=== PATIENT | female | born 1975 | race Caucasian/White ===

== ENCOUNTER 2017-12-26 12:41 | Emergency (ER) | payer SELFPAY ==
[~2017-12-26] VITALS: Ht 165.1 cm; Wt 212.3 kg
[~2017-12-26 12:41] MED LIST: CYCL10 PO; DOXY100 PO; FLUC100 PO; FURO20; HYDACE5 PO; HYDCHL12.5 PO; HYDCHL25 PO; KETO10 PO; LEVFLO500 PO; LORA10ER PO; Lisinopril2.5 MG; META800 PO; NAPR550 PO; NYST100TO TOP; Norco 5-325 Ta1 EACH PO; Norco 7.5-3251 EACH PO; OMEP20ER PO; OXYACE5T PO; POTCHL10ER; PROM25 PO; Percocet 5-3251 EACH PO; RXHYDACE PO; RXMETA400 PO; SOMA350 MG PO
[2017-12-26] MEDS ORDERED: HYDCHL12.5 (12:59)
[2017-12-26] MEDS ORDERED: IBUP600 PO (13:32)
[2017-12-26] MEDS ORDERED: TRAM50 PO (13:32)
== END 2017-12-26 13:38 | disposition home or self-care (01) ==
LOC: ER 12:41
DX: S90.32XA Contusion of left foot, initial encounter (principal); W22.8XXA Striking against or struck by other objects, initial encounter; Z79.899 Other long term (current) drug therapy; G43.909 Migraine, unspecified, not intractable, without status migrainosus; E66.9 Obesity, unspecified; Z87.891 Personal history of nicotine dependence; Z68.45 Body mass index [BMI] 70 or greater, adult; Z85.41 Personal history of malignant neoplasm of cervix uteri
CPT/HCPCS: 73630; 99283

== ENCOUNTER 2018-03-08 20:04 | Inpatient (IN) | payer SELFPAY ==
[~2018-03-08] VITALS: Ht 165.1 cm; Wt 216.1 kg
[~2018-03-08 20:04] MED LIST changes: +HYDCHL12.5; +IBUP600 PO; +TRAM50 PO
[2018-03-08 20:59] LABS: BASOPHILS ABSOLUTE AUTO 0.02 K/mm3 (0.00-0.23); BASOPHILS PERCENT AUTO 0 % (0-2); EOSINOPHILS ABSOLUTE AUTO 0.02 K/mm3 (0.00-0.68); EOSINOPHILS PERCENT AUTO 0 % (0-6); Hematocrit 39.7 % (33.0-51.0); Hemoglobin 13.6 g/dL (11.5-16.0); IMMATURE GRAN ABSOLUTE AUTO 0.03 K/mm3 (0.00-0.10); IMMATURE GRAN PERCENT AUTO 0 % (0-1); LYMPHOCYTES ABSOLUTE AUTO 0.41 K/mm3 (0.84-5.20); LYMPHOCYTES PERCENT AUTO 4 % (21-46); MONOCYTES PERCENT AUTO 5 % (4-13); Mean Corpuscular HGB 31.7 pg (26.0-34.0); Mean Corpuscular HGB Conc 34.3 g/dL (31.5-36.5); Mean Corpuscular Volume 93 fL (80-100); Mean Platelet Volume 10.2 fL (9.1-12.4); NEUTROPHILS ABSOLUTE AUTO 9.31 K/mm3 (1.96-9.15); NEUTROPHILS PERCENT AUTO 90 % (41-73); Platelet Count 144 K/mm3 (150-400); RDW Standard Deviation 40.9 fL (35.1-46.3); Red Blood Cell Count 4.29 M/mm3 (3.80-5.20); White Blood Cell Count 10.29 K/mm3 (4.00-11.30)
[2018-03-08 21:16] LABS: Alanine Aminotransfer (ALT/SGP 59 U/L (12-78); Albumin, Blood 3.3 g/dL (3.4-5.0); Albumin/Globulin Ratio 0.7 (0.8-1.8); Alk Phos 108 U/L (50-136); Anion Gap 8 mmol/L (6-16); Aspartate Aminotrans (AST/SGOT 63 U/L (12-37); Bilirubin, Total 0.5 mg/dL (0.1-1.0); Blood Urea Nitrogen 16 mg/dL (8-24); Bun/Creatinine Ratio 15.2 (12.0-20.0); CO2, Blood 27 mmol/L (21-32); Calcium, Blood 8.9 mg/dL (8.5-10.1); Chloride, Blood 99 mmol/L (98-108); Creatinine, Blood 1.05 mg/dL (0.40-1.00); Globulin, Blood 4.7 g/dL (2.2-4.0); Glomerular Filtration Rate >60 (60-); Glucose, Blood 118 mg/dL (70-99); Potassium, Blood 3.7 mmol/L (3.5-5.5); Sodium, Blood 134 mmol/L (136-145)
[2018-03-08] MEDS ORDERED: Adipex-P37.5 MG PO (23:25)
[2018-03-08] MEDS ORDERED: FURO20 PO (23:26)
[2018-03-08] MEDS ORDERED: POTCHL10ER (23:26)
[2018-03-08] MEDS ORDERED: ZESTORETIC 20-1 EAC1 PO (23:26)
[2018-03-08 23:42] LABS: Source, Urine Catheter
[2018-03-08 23:45] LABS: Bilirubin, Urine Neg (Neg); Blood, Urine 1+ (Neg); Glucose Qualitative, Urine Neg (Neg); Ketones, Urine Neg (Neg); Leukocyte Esterase, Urine Neg (Neg); Nitrite, Urine Neg (Neg); Protein, Urine Neg (Neg); Specific Gravity, Urine 1.025 (1.003-1.022); Urobilinogen, Urine NORM (Normal)
[2018-03-08 23:57] LABS: Appearance, Urine Hazy (Clear); Color, Urine Yellow (P-Yellow)
[2018-03-08 23:58] LABS: Amorphous Light (0-Heavy); Bacteria Mod /hpf; Squamous Epithelial Cells Few /hpf (Few); White Blood Cells, Urine 0-2 /hpf (0-5)
[2018-03-09 10:04] LABS: BASOPHILS ABSOLUTE AUTO 0.02 K/mm3 (0.00-0.23); BASOPHILS PERCENT AUTO 0 % (0-2); EOSINOPHILS PERCENT AUTO 0 % (0-6); Hematocrit 36.5 % (33.0-51.0); Hemoglobin 12.2 g/dL (11.5-16.0); IMMATURE GRAN ABSOLUTE AUTO 0.03 K/mm3 (0.00-0.10); IMMATURE GRAN PERCENT AUTO 0 % (0-1); LYMPHOCYTES ABSOLUTE AUTO 0.57 K/mm3 (0.84-5.20); LYMPHOCYTES PERCENT AUTO 6 % (21-46); MONOCYTES ABSOLUTE AUTO 0.26 K/mm3 (0.16-1.47); MONOCYTES PERCENT AUTO 3 % (4-13); Mean Corpuscular HGB 31.6 pg (26.0-34.0); Mean Corpuscular HGB Conc 33.4 g/dL (31.5-36.5); Mean Corpuscular Volume 95 fL (80-100); Mean Platelet Volume 10.2 fL (9.1-12.4); NEUTROPHILS ABSOLUTE AUTO 8.17 K/mm3 (1.96-9.15); NEUTROPHILS PERCENT AUTO 90 % (41-73); Platelet Count 111 K/mm3 (150-400); RDW Coefficient Variation 12.3 % (11.7-14.2); RDW Standard Deviation 43.1 fL (35.1-46.3); Red Blood Cell Count 3.86 M/mm3 (3.80-5.20); White Blood Cell Count 9.05 K/mm3 (4.00-11.30)
[2018-03-09 10:18] LABS: Bun/Creatinine Ratio 12.2 (12.0-20.0); Calcium, Blood 7.9 mg/dL (8.5-10.1); Creatinine, Blood 1.15 mg/dL (0.40-1.00); Potassium, Blood 3.2 mmol/L (3.5-5.5)
[2018-03-10 04:40] LABS: BASOPHILS ABSOLUTE AUTO 0.02 K/mm3 (0.00-0.23); BASOPHILS PERCENT AUTO 0 % (0-2); EOSINOPHILS ABSOLUTE AUTO 0.08 K/mm3 (0.00-0.68); EOSINOPHILS PERCENT AUTO 1 % (0-6); Hematocrit 33.9 % (33.0-51.0); Hemoglobin 11.4 g/dL (11.5-16.0); IMMATURE GRAN ABSOLUTE AUTO 0.01 K/mm3 (0.00-0.10); IMMATURE GRAN PERCENT AUTO 0 % (0-1); LYMPHOCYTES ABSOLUTE AUTO 0.84 K/mm3 (0.84-5.20); LYMPHOCYTES PERCENT AUTO 15 % (21-46); MONOCYTES ABSOLUTE AUTO 0.33 K/mm3 (0.16-1.47); MONOCYTES PERCENT AUTO 6 % (4-13); Mean Corpuscular HGB 31.1 pg (26.0-34.0); Mean Corpuscular HGB Conc 33.6 g/dL (31.5-36.5); Mean Corpuscular Volume 93 fL (80-100); Mean Platelet Volume 10.7 fL (9.1-12.4); NEUTROPHILS ABSOLUTE AUTO 4.35 K/mm3 (1.96-9.15); NEUTROPHILS PERCENT AUTO 77 % (41-73); Platelet Count 125 K/mm3 (150-400); RDW Coefficient Variation 12.3 % (11.7-14.2); Red Blood Cell Count 3.66 M/mm3 (3.80-5.20); White Blood Cell Count 5.63 K/mm3 (4.00-11.30)
[2018-03-10 04:59] LABS: Anion Gap 9 mmol/L (6-16); Blood Urea Nitrogen 13 mg/dL (8-24); Bun/Creatinine Ratio 12.1 (12.0-20.0); CO2, Blood 25 mmol/L (21-32); Calcium, Blood 7.7 mg/dL (8.5-10.1); Chloride, Blood 104 mmol/L (98-108); Creatinine, Blood 1.07 mg/dL (0.40-1.00); Glomerular Filtration Rate >60 (60-); Glucose, Blood 115 mg/dL (70-99); Potassium, Blood 3.3 mmol/L (3.5-5.5); Sodium, Blood 138 mmol/L (136-145)
[2018-03-10 16:00] LABS: Vancomycin, Trough 31.4 ug/mL (5.0-10.0)
[2018-03-11 05:54] LABS: Vancomycin, Random 16.5 ug/mL
[2018-03-12 09:12] LABS: Creatinine, Blood 0.98 mg/dL (0.40-1.00)
[2018-03-13] MEDS ORDERED: SKIN TREATMENT225 GM TOP (11:02)
[2018-03-13] MEDS ORDERED: LEVO750 PO (11:03)
== END 2018-03-13 11:57 | disposition home or self-care (01) | DRG 872 ==
LOC: ER 20:04 → MEDS 22:30 → PCU 22:30 → MEDS 03-09 00:16 → PCU 03-09 00:34 → MEDS 03-09 19:20 → ENPENDDIS 03-13 10:21 → MEDS 03-13 11:57
PROVIDERS: Emergency Medicine; Hospitalist; Internal Medicine; Nurse Practitioner Acute Care; Pharmacist Pharmacotherapy
DX: A41.9 Sepsis, unspecified organism (principal); L03.115 Cellulitis of right lower limb; Z68.45 Body mass index [BMI] 70 or greater, adult; R65.20 Severe sepsis without septic shock; I89.0 Lymphedema, not elsewhere classified; I10 Essential (primary) hypertension; R40.2412 Glasgow coma scale score 13-15, at arrival to emergency department; E66.01 Morbid (severe) obesity due to excess calories; Z85.41 Personal history of malignant neoplasm of cervix uteri; R19.7 Diarrhea, unspecified; I95.9 Hypotension, unspecified; E86.1 Hypovolemia; L30.9 Dermatitis, unspecified
CPT/HCPCS: 36415; 71046; 76882; 80048; 80053; 80202; 81001; 82565; 83605; 85025; 85027; 85651; 86140; 87040; 87086; 93005; 93010; 94762; 96365; 96367; 96375; 97116; 97162; 97530; 99285; G8978; G8979; J0690; J1650; J2543; J3010; J3370; J7030; J7050

== ENCOUNTER → 2018-03-21 | Outpatient (CLI) | payer SELFPAY ==
[~2018-03-21] MED LIST changes: +Adipex-P37.5 MG PO; +FURO20 PO; +LEVO750 PO; +SKIN TREATMENT225 GM TOP; +ZESTORETIC 20-1 EAC1 PO
[2018-03-21 12:51] LABS: BASOPHILS ABSOLUTE AUTO 0.04 K/mm3 (0.00-0.23); BASOPHILS PERCENT AUTO 1 % (0-2); EOSINOPHILS ABSOLUTE AUTO 0.15 K/mm3 (0.00-0.68); EOSINOPHILS PERCENT AUTO 3 % (0-6); Hematocrit 40.6 % (33.0-51.0); Hemoglobin 13.3 g/dL (11.5-16.0); IMMATURE GRAN ABSOLUTE AUTO 0.02 K/mm3 (0.00-0.10); IMMATURE GRAN PERCENT AUTO 0 % (0-1); LYMPHOCYTES ABSOLUTE AUTO 1.48 K/mm3 (0.84-5.20); LYMPHOCYTES PERCENT AUTO 28 % (21-46); MONOCYTES ABSOLUTE AUTO 0.53 K/mm3 (0.16-1.47); MONOCYTES PERCENT AUTO 10 % (4-13); Mean Corpuscular HGB 31.4 pg (26.0-34.0); Mean Corpuscular HGB Conc 32.8 g/dL (31.5-36.5); Mean Corpuscular Volume 96 fL (80-100); Mean Platelet Volume 9.8 fL (9.1-12.4); NEUTROPHILS ABSOLUTE AUTO 3.17 K/mm3 (1.96-9.15); NEUTROPHILS PERCENT AUTO 59 % (41-73); Platelet Count 268 K/mm3 (150-400); RDW Coefficient Variation 12.7 % (11.7-14.2); RDW Standard Deviation 44.8 fL (35.1-46.3); Red Blood Cell Count 4.24 M/mm3 (3.80-5.20); White Blood Cell Count 5.39 K/mm3 (4.00-11.30)
[2018-03-21 12:57] LABS: Bun/Creatinine Ratio 13.6 (12.0-20.0); Calcium, Blood 9.6 mg/dL (8.5-10.1); Creatinine, Blood 1.25 mg/dL (0.40-1.00); Potassium, Blood 4.1 mmol/L (3.5-5.5)
== END ==
LOC: LAB EV 12:47 → LAB SHORT 12:47
PROVIDERS: Physician Assistant Surgical
DX: R53.83 Other fatigue (principal)
CPT/HCPCS: 80048; 85025

== ENCOUNTER 2018-04-02 16:33 | Observation (INO) | payer SELFPAY ==
[~2018-04-02] VITALS: Ht 167.6 cm; Wt 209.4 kg
[2018-04-02 18:51] LABS: BASOPHILS ABSOLUTE AUTO 0.03 K/mm3 (0.00-0.23); BASOPHILS PERCENT AUTO 0 % (0-2); EOSINOPHILS ABSOLUTE AUTO 0.07 K/mm3 (0.00-0.68); EOSINOPHILS PERCENT AUTO 1 % (0-6); Hemoglobin 14.2 g/dL (11.5-16.0); IMMATURE GRAN ABSOLUTE AUTO 0.02 K/mm3 (0.00-0.10); IMMATURE GRAN PERCENT AUTO 0 % (0-1); LYMPHOCYTES ABSOLUTE AUTO 2.05 K/mm3 (0.84-5.20); LYMPHOCYTES PERCENT AUTO 30 % (21-46); MONOCYTES ABSOLUTE AUTO 0.68 K/mm3 (0.16-1.47); MONOCYTES PERCENT AUTO 10 % (4-13); Mean Corpuscular HGB 31.2 pg (26.0-34.0); Mean Corpuscular Volume 95 fL (80-100); Mean Platelet Volume 10.3 fL (9.1-12.4); NEUTROPHILS ABSOLUTE AUTO 4.11 K/mm3 (1.96-9.15); NEUTROPHILS PERCENT AUTO 59 % (41-73); Platelet Count 212 K/mm3 (150-400); RDW Coefficient Variation 12.7 % (11.7-14.2); RDW Standard Deviation 44.2 fL (35.1-46.3); Red Blood Cell Count 4.55 M/mm3 (3.80-5.20); White Blood Cell Count 6.96 K/mm3 (4.00-11.30)
[2018-04-02 18:53] LABS: Source, Urine Catheter
[2018-04-02 18:57] LABS: Bilirubin, Urine Neg (Neg); Blood, Urine 1+ (Neg); Glucose Qualitative, Urine Neg (Neg); Ketones, Urine Neg (Neg); Leukocyte Esterase, Urine 3+ (Neg); Nitrite, Urine Neg (Neg); Protein, Urine Neg (Neg); Urobilinogen, Urine NORM (Normal)
[2018-04-02 19:23] LABS: Albumin, Blood 3.6 g/dL (3.4-5.0); Albumin/Globulin Ratio 0.8 (0.8-1.8); Bilirubin, Total 0.7 mg/dL (0.1-1.0); Bun/Creatinine Ratio 15.7 (12.0-20.0); Calcium, Blood 9.2 mg/dL (8.5-10.1); Creatinine, Blood 1.15 mg/dL (0.40-1.00); Globulin, Blood 4.4 g/dL (2.2-4.0); Potassium, Blood 3.6 mmol/L (3.5-5.5)
[2018-04-02 19:23] LABS: Appearance, Urine Hazy (Clear); Color, Urine Yellow (P-Yellow)
[2018-04-02 19:24] LABS: Amorphous Light (0-Heavy); Bacteria Mod /hpf; Mucus Light (0-Heavy); Red Blood Cells, Urine 0-2 /hpf (0-2); Squamous Epithelial Cells Few /hpf (Few); White Blood Cells, Urine 25-50 /hpf (0-5); Yeast/Fungi Urine Few /hpf
[2018-04-03 05:25] LABS: Hematocrit 39.7 % (33.0-51.0); Hemoglobin 13.2 g/dL (11.5-16.0); Mean Corpuscular HGB 30.9 pg (26.0-34.0); Mean Corpuscular HGB Conc 33.2 g/dL (31.5-36.5); Mean Corpuscular Volume 93 fL (80-100); Mean Platelet Volume 10.6 fL (9.1-12.4); Platelet Count 170 K/mm3 (150-400); RDW Standard Deviation 43.9 fL (35.1-46.3); Red Blood Cell Count 4.27 M/mm3 (3.80-5.20); White Blood Cell Count 4.98 K/mm3 (4.00-11.30)
[2018-04-03 05:53] LABS: Anion Gap 8 mmol/L (6-16); Blood Urea Nitrogen 19 mg/dL (8-24); Bun/Creatinine Ratio 17.8 (12.0-20.0); CO2, Blood 29 mmol/L (21-32); Calcium, Blood 8.9 mg/dL (8.5-10.1); Chloride, Blood 100 mmol/L (98-108); Creatinine, Blood 1.07 mg/dL (0.40-1.00); Glomerular Filtration Rate >60 (60-); Glucose, Blood 97 mg/dL (70-99); Potassium, Blood 3.5 mmol/L (3.5-5.5); Sodium, Blood 137 mmol/L (136-145)
[2018-04-03] MEDS ORDERED: Ceftriaxone2 G1 IV (11:09)
[2018-04-03] MEDS ORDERED: ACET325 PO (11:09)
[2018-04-03] MEDS ORDERED: Acidophilus La100 GM PO (11:10)
== END 2018-04-03 15:48 | disposition home or self-care (01) ==
LOC: ER 16:33 → MEDS 16:34 → ER 16:34 → MEDS 16:35 → ENPENDDIS 04-03 11:30 → MEDS 04-03 15:48
PROVIDERS: Internal Medicine; Physician Assistant
DX: L03.115 Cellulitis of right lower limb (principal); E66.01 Morbid (severe) obesity due to excess calories; I89.0 Lymphedema, not elsewhere classified; I12.9 Hypertensive chronic kidney disease with stage 1 through stage 4 chronic kidney disease, or unspecified chronic kidney disease; N18.9 Chronic kidney disease, unspecified; N17.9 Acute kidney failure, unspecified; Z79.899 Other long term (current) drug therapy; Z87.891 Personal history of nicotine dependence
CPT/HCPCS: 36415; 80048; 80053; 81001; 83605; 85025; 85027; 87040; 87086; 93005; 93010; 96374; 96376; 99285-25; G0378; J0696; J1650; J2765; J7120

== ENCOUNTER 2018-04-09 00:41 | Day surgery (SDC) | payer SELFPAY ==
[~2018-04-09 00:41] MED LIST changes: +ACET325 PO; +Acidophilus La100 GM PO; +Ceftriaxone2 G1 IV
== END 2018-04-09 08:06 | disposition home or self-care (01) ==
LOC: ATC 00:41
DX: L03.115 Cellulitis of right lower limb (principal); E66.01 Morbid (severe) obesity due to excess calories; I10 Essential (primary) hypertension
CPT/HCPCS: 96374; J0696

== ENCOUNTER 2020-02-24 00:17 | Day surgery (SDC) | payer OTHER | END 2020-02-24 23:00 | disposition home or self-care (01) | LOC: WOUND 00:17 | DX: I89.0 Lymphedema, not elsewhere classified (principal); E66.01 Morbid (severe) obesity due to excess calories; I10 Essential (primary) hypertension; G47.33 Obstructive sleep apnea (adult) (pediatric); Z87.891 Personal history of nicotine dependence; Z91.018 Allergy to other foods; Z68.45 Body mass index [BMI] 70 or greater, adult | CPT/HCPCS: G0463 ==

== ENCOUNTER 2020-05-04 14:17 | Inpatient (IN) | payer OTHER ==
[~2020-05-04] VITALS: Ht 162.6 cm; Wt 249.9 kg
[2020-05-04 15:23] LABS: BASOPHILS ABSOLUTE AUTO 0.02 K/mm3 (0.00-0.23); BASOPHILS PERCENT AUTO 0 % (0-2); EOSINOPHILS PERCENT AUTO 0 % (0-6); Hematocrit 37.3 % (33.0-51.0); IMMATURE GRAN ABSOLUTE AUTO 0.06 K/mm3 (0.00-0.10); IMMATURE GRAN PERCENT AUTO 0 % (0-1); LYMPHOCYTES ABSOLUTE AUTO 0.85 K/mm3 (0.84-5.20); LYMPHOCYTES PERCENT AUTO 6 % (21-46); MONOCYTES ABSOLUTE AUTO 0.39 K/mm3 (0.16-1.47); MONOCYTES PERCENT AUTO 3 % (4-13); Mean Corpuscular HGB 31.3 pg (26.0-34.0); Mean Corpuscular HGB Conc 32.2 g/dL (31.5-36.5); Mean Corpuscular Volume 97 fL (80-100); Mean Platelet Volume 10.4 fL (9.1-12.4); NEUTROPHILS ABSOLUTE AUTO 12.61 K/mm3 (1.96-9.15); NEUTROPHILS PERCENT AUTO 91 % (41-73); Platelet Count 147 K/mm3 (150-400); RDW Coefficient Variation 13.2 % (11.7-14.2); RDW Standard Deviation 46.7 fL (35.1-46.3); Red Blood Cell Count 3.84 M/mm3 (3.80-5.20); White Blood Cell Count 13.93 K/mm3 (4.00-11.30)
[2020-05-04 15:41] LABS: Source, Urine Catheter
[2020-05-04 15:45] LABS: Appearance, Urine Hazy (Clear); Blood, Urine 2+ (Neg); Color, Urine Amber (P-Yellow); Glucose Qualitative, Urine Neg (Neg); Ketones, Urine Neg (Neg); Leukocyte Esterase, Urine 1+ (Neg); Nitrite, Urine Neg (Neg); Protein, Urine 2+ (Neg); Specific Gravity, Urine 1.015 (1.003-1.022); Urobilinogen, Urine 1+ (Normal)
[2020-05-04 15:47] LABS: Alanine Aminotransfer (ALT/SGP 29 U/L (12-78); Albumin, Blood 2.7 g/dL (3.4-5.0); Albumin/Globulin Ratio 0.7 (0.8-1.8); Alk Phos 62 U/L (50-136); Anion Gap 5 mmol/L (6-16); Aspartate Aminotrans (AST/SGOT 19 U/L (12-37); Bilirubin, Total 1.1 mg/dL (0.1-1.0); Blood Urea Nitrogen 15 mg/dL (8-24); Bun/Creatinine Ratio 16.4 (12.0-20.0); CO2, Blood 25 mmol/L (21-32); Calcium, Blood 8.2 mg/dL (8.5-10.1); Chloride, Blood 105 mmol/L (98-108); Creatinine, Blood 0.91 mg/dL (0.40-1.00); Globulin, Blood 4.1 g/dL (2.2-4.0); Glomerular Filtration Rate >60 (60-); Glucose, Blood 98 mg/dL (70-99); Potassium, Blood 3.9 mmol/L (3.5-5.5); Sodium, Blood 135 mmol/L (136-145); Total Protein, Blood 6.8 g/dL (6.4-8.2)
[2020-05-04 15:52] LABS: Bilirubin, Urine 1+ (Neg)
[2020-05-04 15:55] LABS: Red Blood Cells, Urine 0-2 /hpf (0-2); Squamous Epithelial Cells Many /hpf (Few); White Blood Cells, Urine 0-2 /hpf (0-5)
[2020-05-04 15:56] LABS: Bacteria Few /hpf; Other Crystals Mod /hpf
--- NOTE | 2020-05-04 22:22 | NUR ---
ADMITTED 44 YR OLD FEMALE WITH MORBID OBESITY (249.93 KG) WITH CHIEF COMPLAINT OF BACK PAIN. ED RN REPORTED THIS HAD BEEN OVER THE PAST FEW DAYS PRIOR TO ADMISSION. PLACED ON BARIATRIC BED WITH CEILING LIFT. PRESENTS SELF ALERT BUT TIRED. NOBLE DRAINING KENDRA. NOTE RIGHT LEG WARM, TEMP SLIGHTLY ELEVATED, OTHERWISE VSS. ORIENTED TO USE OF CALL LIGHT. CALL LIGHT IN REACH. WILL MONITOR. RAILS UP X 3
[2020-05-05 01:26] LABS: Source, Urine Catheter
[2020-05-05 01:29] LABS: Appearance, Urine Clear (Clear); Bilirubin, Urine Neg (Neg); Blood, Urine 3+ (Neg); Color, Urine Yellow (P-Yellow); Glucose Qualitative, Urine Neg (Neg); Ketones, Urine 3+ (Neg); Leukocyte Esterase, Urine Neg (Neg); Nitrite, Urine Neg (Neg); Protein, Urine Neg (Neg); Urobilinogen, Urine NORM (Normal)
[2020-05-05 01:36] LABS: Red Blood Cells, Urine 0-2 /hpf (0-2); White Blood Cells, Urine 0-2 /hpf (0-5)
[2020-05-05 01:37] LABS: Bacteria Mod /hpf; Hyaline Casts 0-2 /lpf (0-2); Mucus Light (0-Heavy); Squamous Epithelial Cells Not Seen /hpf (Few)
--- NOTE | 2020-05-05 03:20 | NUR ---
NOTE RIGHT LEG MORE SWOLLEN THAN NOTED ON ADMISSION. TEMP 101.9, HR 111, R 16, O2 SATS 97%. VIEWS SCORE 5, CHARGE NURSE NOTIFIED, TYLENOL 650 MG PO ADMININSTERED. SCHEDULED VANCO STARTED IV. CALL PLACED TO MD TECHNOLOGY ASSISTANT, WAITING FOR CALL BACK. CALL LIGHT IN REACH.
--- NOTE | 2020-05-05 03:25 | NUR ---
RETURNED CALL. NOTIFIED OF TYLENOL GIVEN AND VANCO INFUSING, ACKNOWLEDGED PROCEDURES AND OF ENLARGED RIGHT LEG COMPARED TO THAT OF EARLIER. STATED TO CONTINUE TO MONITOR. WILL RECHECK VS IN 1 HR.
--- NOTE | 2020-05-05 04:01 | NUR ---
TEMP 99.4. TYLENOL EFFECTIVE IN DECREASING FEVER. IV ANTIBIOTIC CONTINUES TO INFUSE. WILL CONTINUE TO MONITOR AND ASSESS. CALL LIGHT IN REACH
[2020-05-05 05:26] LABS: BASOPHILS ABSOLUTE AUTO 0.02 K/mm3 (0.00-0.23); BASOPHILS PERCENT AUTO 0 % (0-2); EOSINOPHILS ABSOLUTE AUTO 0.01 K/mm3 (0.00-0.68); EOSINOPHILS PERCENT AUTO 0 % (0-6); Hematocrit 34.8 % (33.0-51.0); Hemoglobin 11.2 g/dL (11.5-16.0); IMMATURE GRAN ABSOLUTE AUTO 0.04 K/mm3 (0.00-0.10); IMMATURE GRAN PERCENT AUTO 0 % (0-1); LYMPHOCYTES ABSOLUTE AUTO 0.88 K/mm3 (0.84-5.20); LYMPHOCYTES PERCENT AUTO 9 % (21-46); MONOCYTES ABSOLUTE AUTO 0.43 K/mm3 (0.16-1.47); MONOCYTES PERCENT AUTO 4 % (4-13); Mean Corpuscular HGB 31.3 pg (26.0-34.0); Mean Corpuscular HGB Conc 32.2 g/dL (31.5-36.5); Mean Corpuscular Volume 97 fL (80-100); Mean Platelet Volume 10.5 fL (9.1-12.4); NEUTROPHILS ABSOLUTE AUTO 8.88 K/mm3 (1.96-9.15); NEUTROPHILS PERCENT AUTO 87 % (41-73); Platelet Count 121 K/mm3 (150-400); RDW Coefficient Variation 13.2 % (11.7-14.2); RDW Standard Deviation 47.1 fL (35.1-46.3); Red Blood Cell Count 3.58 M/mm3 (3.80-5.20); White Blood Cell Count 10.26 K/mm3 (4.00-11.30)
[2020-05-05 05:39] LABS: Anion Gap 7 mmol/L (6-16); Blood Urea Nitrogen 13 mg/dL (8-24); Bun/Creatinine Ratio 12.5 (12.0-20.0); CO2, Blood 25 mmol/L (21-32); Calcium, Blood 8.1 mg/dL (8.5-10.1); Chloride, Blood 106 mmol/L (98-108); Creatinine, Blood 1.04 mg/dL (0.40-1.00); Glomerular Filtration Rate >60 (60-); Glucose, Blood 97 mg/dL (70-99); Potassium, Blood 3.7 mmol/L (3.5-5.5); Sodium, Blood 138 mmol/L (136-145)
--- NOTE | 2020-05-05 17:38 | NUR ---
SHIFT SUMMARY PT AOX4 AND CALLS APPROPRIATELY. PT MEDICATED FOR PAIN X1 THIS SHIFT AND MEDICATED X1 FOR FEVER OF 101.0, TRENDING UP TOWARDS 102.9. PT TEMP IS 102.3 WHEN RECHECKED THIS PASCUAL. PT CURRENTLY HAS ICE PACK ON BACK OF NECK AND FAN GOING. PT WORKED WITH PT THIS AM USING LIFT. PT TRANSFERRED INTO NEW BARIATRIC BED OWNED BY HOSPITAL AND RECLINER BROUGHT INTO PT ROOM. PT C/O SLIGHT COUGH AND BURPING UP "FOAM." SILVERIO MIST SEEMS TO HELP WITH THE COUGHING/BURPING. PT IS IN BED IN LOW POSITION WITH CALL LIGHT IN REACH.
[2020-05-06 05:05] LABS: BASOPHILS ABSOLUTE AUTO 0.02 K/mm3 (0.00-0.23); BASOPHILS PERCENT AUTO 0 % (0-2); EOSINOPHILS ABSOLUTE AUTO 0.12 K/mm3 (0.00-0.68); EOSINOPHILS PERCENT AUTO 2 % (0-6); Hemoglobin 11.2 g/dL (11.5-16.0); IMMATURE GRAN ABSOLUTE AUTO 0.02 K/mm3 (0.00-0.10); IMMATURE GRAN PERCENT AUTO 0 % (0-1); LYMPHOCYTES ABSOLUTE AUTO 0.97 K/mm3 (0.84-5.20); LYMPHOCYTES PERCENT AUTO 13 % (21-46); MONOCYTES PERCENT AUTO 6 % (4-13); Mean Corpuscular HGB 31.4 pg (26.0-34.0); Mean Corpuscular Volume 98 fL (80-100); Mean Platelet Volume 10.3 fL (9.1-12.4); NEUTROPHILS ABSOLUTE AUTO 6.13 K/mm3 (1.96-9.15); NEUTROPHILS PERCENT AUTO 79 % (41-73); Platelet Count 123 K/mm3 (150-400); RDW Coefficient Variation 13.1 % (11.7-14.2); RDW Standard Deviation 47.2 fL (35.1-46.3); Red Blood Cell Count 3.57 M/mm3 (3.80-5.20); White Blood Cell Count 7.76 K/mm3 (4.00-11.30)
[2020-05-06 05:22] LABS: Anion Gap 5 mmol/L (6-16); Blood Urea Nitrogen 11 mg/dL (8-24); Bun/Creatinine Ratio 11.2 (12.0-20.0); CO2, Blood 27 mmol/L (21-32); Calcium, Blood 8.4 mg/dL (8.5-10.1); Chloride, Blood 106 mmol/L (98-108); Creatinine, Blood 0.98 mg/dL (0.40-1.00); Glomerular Filtration Rate >60 (60-); Glucose, Blood 111 mg/dL (70-99); Potassium, Blood 3.7 mmol/L (3.5-5.5); Sodium, Blood 138 mmol/L (136-145)
--- NOTE | 2020-05-06 06:51 | NUR ---
SHIFT SUMMARY PT IS A 44 Y/O FEMALE, ADMITTED FOR SEPSIS R/T RLE CELLULITIS. SHE IS A&O X 4, BEDREST. PT IS MORBIDLY OBESE, CURRENTLY A LIFT PT TO GET OUT OF BED. SHE WAS MEDICATED FOR RLE PAIN AND A MCKEON WITH PRN TYLENOL AND OXYCODONE. NO COMPLAINTS OF NAUSEA OR SOB. VITAL SIGNS STABLE. NO ACUTE CHANGES IN PT CONDITION NOTED DURING THE NIGHT. WILL CONTINUE TO MONITOR AND TREAT PER EMAR UNTIL HAND OFF TO DAY SHIFT RN.
--- NOTE | 2020-05-06 18:47 | NUR ---
SHIFT SUMMARY PT IS AOX4. PT HAS BEEN MEDICATED FOR PAIN X3 THIS SHIFT FOR HEAD AND LEG PAIN. PT C/O CHEST PAIN IN THE EPIGASTRIC REGION THAT DOES NOT RADIATE AND PHYSICIAN IS AWARE OF STATUS. PT HAS HAD POOR APPETITE THIS SHIFT. PT WORKED WITH PT TO STAND AND REPORTS SHE DID WELL STANDING. PT IS STILL A LIFT STATUS.RIGHT LEG CONTINUES TO BE WARM AND REDNESS HAS INCREASED THIS SHIFT. ABX ARE RUNNING ON PT ORDERED. NO FEVER THIS SHIFT. PT IS CURRENTLY IN THE BEDSIDE RECLINER WITH VISITOR BRUSHING HER HAIR. PT HAS CALL LIGHT IN REACH.
--- NOTE | 2020-05-07 01:55 | NUR ---
PT STATED THAT SHE WAS EXPERIENCING BAD DREAMS AND HALLUCINATIONS DUE TO AN UNSPECIFIED MEDICATION THAT SHE NO LONGER WISHES TO TAKE, NURSE NOTIFIED.
[2020-05-07 05:56] LABS: BASOPHILS ABSOLUTE AUTO 0.01 K/mm3 (0.00-0.23); BASOPHILS PERCENT AUTO 0 % (0-2); EOSINOPHILS ABSOLUTE AUTO 0.12 K/mm3 (0.00-0.68); EOSINOPHILS PERCENT AUTO 2 % (0-6); Hematocrit 36.4 % (33.0-51.0); Hemoglobin 11.7 g/dL (11.5-16.0); IMMATURE GRAN ABSOLUTE AUTO 0.02 K/mm3 (0.00-0.10); IMMATURE GRAN PERCENT AUTO 0 % (0-1); LYMPHOCYTES ABSOLUTE AUTO 0.76 K/mm3 (0.84-5.20); LYMPHOCYTES PERCENT AUTO 14 % (21-46); MONOCYTES ABSOLUTE AUTO 0.45 K/mm3 (0.16-1.47); MONOCYTES PERCENT AUTO 8 % (4-13); Mean Corpuscular HGB 31.4 pg (26.0-34.0); Mean Corpuscular HGB Conc 32.1 g/dL (31.5-36.5); Mean Corpuscular Volume 98 fL (80-100); Mean Platelet Volume 10.5 fL (9.1-12.4); NEUTROPHILS ABSOLUTE AUTO 4.11 K/mm3 (1.96-9.15); NEUTROPHILS PERCENT AUTO 75 % (41-73); Platelet Count 138 K/mm3 (150-400); RDW Coefficient Variation 12.8 % (11.7-14.2); RDW Standard Deviation 46.5 fL (35.1-46.3); Red Blood Cell Count 3.73 M/mm3 (3.80-5.20); White Blood Cell Count 5.47 K/mm3 (4.00-11.30)
--- NOTE | 2020-05-07 06:40 | NUR ---
SHIFT SUMMARY PT IS A 44 Y/O FEMALE, ADMITTED FOR RLE CELLULITIS AND SEPSIS. SHE IS A&O X 4, AND A LIFT PT. PT WAS MEDICATED FOR PAIN WITH PRN TYLENOL & TRAMADOL AT HS, AND OXYCODONE DURING THE NIGHT. SHE REPORT NEW ONSET "NIGHTMARES" AND EPISODES OF ANXIETY WAKING HER UP INTERMITTENTLY DURING THE NIGHT. PT DID REPORT MILD NAUSEA, BUT REFUSED ANY NAUSEA MEDS. NO C/O SOB. VITAL SIGNS STABLE. NO OTHER ACUTE CHANGES IN PT CONDITION NOTED. WILL CONTINUE TO MONITOR AND TREAT PER EMAR UNTIL HAND OFF TO DAY SHIFT RN.
[2020-05-07 12:55] LABS: Vancomycin, Trough 27.5 ug/mL (5.0-10.0)
[2020-05-07 16:36] LABS: Vancomycin, Random 20.9 ug/mL
--- NOTE | 2020-05-07 19:54 | NUR ---
SHIFT SUMMARY- NO ACUTE CHANGE TODAY. NO PAIN MEDICATION REQUESTED. BURNING IN THE MID STERNAL AREA BECAME INTENSE AND THE PT REQUESTED SOMETHING TO HELP WITH IT. CALLED AND RECIEVED AN ORDER FOR GI COCKTAIL, WICH RESOLVED THE PAIN ENTIRELY. PT WAS ABLE TO EAT PART OF A SANDWITCH. PT HAD A FULL BED BATH AND WORKED WITH THERAPY TODAY, SHE IS HOPEFUL SHE WILL GET TO GO HOME TOMORROW. BEDSIDE REPORT COMPLETED WITH NIGHT TIRSO TELLO. PT IN BED CALL LIGHT IN REACH NO S&S OF DISTRESS NOTED AT THE TIME OF SHIFT CHANGE.
--- NOTE | 2020-05-08 04:15 | NUR ---
SHIFT SUMMARY ADMITTED FOR SEPSIS. SHE HAS RT LEG CELLULITIS. FULL CODE. SHE IS MORBIDLY OBESE. SHE HAS LYMPHADEMA OF BLE. CURRENTLY SHE IS A LIFT PT BUT PHYSICAL THERAPY HAS BEGUN WORKING WITH HER. A NOBLE IS IN PLACE AND PATENT. SHE DID RUN A LOW GRADE FEVER THIS SHIFT OF 101, TYLENOL WAS GIVEN TO GOOD EFFECT. IV ANTIBIOTICS ARE SCHEDULED. SHE STATES THAT WAS PREVIOUSLY SET UP FOR HER AT HOME, BUT THEY HAVE NOT COME TO THE HOUSE YET. SHE DOES LIVE AT HOME WITH HER .
[2020-05-08 08:53] LABS: Creatinine, Blood 0.81 mg/dL (0.40-1.00); Vancomycin, Trough 18.4 ug/mL (5.0-10.0)
--- NOTE | 2020-05-08 14:47 | NUR ---
PT DECLINED METAMUCIL STATED IF SHE CAN SIT ON THE COMODE SHE THINKS SHE CAN GO. PT CURRENTLY WORKING WITH PHYSICAL THERAPY, BUT UNABLE TO TAKE STEPS. T WILLING TO TRY A BARIATRIC BED ROY WHEN SHE IS DONE.
--- NOTE | 2020-05-08 19:28 | NUR ---
SHIFT SUMMARY- PT ALERT AND ORIENTED 1P SBGA SIT TO STAND PT UNABLE TO AMBULATE SAFELY AT THIS TIME PER PHYSICAL THERAPY. PT RLE HAS CELLULITIS BEING Tx WITH IV ABX. IV APPEARS BRUISED, BUT FLUSHES WELL RAIL WASHER PLACED A NEW IV IN THE RIGHT AC. PT HAS RIGHT LEG EDEMA AND HAS DEVELOPED LARGE WATER BLISTERS THAT ARE WEEPING COPIOUS AMOUNTS OF CLEAR YELLOW SEROSANGUINOUS FLUID. IS AWARE. TWO LARGE WHITE DISPOSIBLE CHUCKS BEING PLACED UNDER THE WEAPING AREAS AND CHANGED EVERY 2 HOURS DURING THE SHIFT THEY WERE SATURATED COMPLETELY THAT OFTEN. PT HAS A NEW ORDER FOR NYSTATIN POWDER FOR THE SKIN FOLDS. BEDSIDE REPORT COMPLETED WITH NIGHT TIRSO TELLO AND TIRSO SONI. PT TEMP ELEVATED AGAIN TO 99.9 AT THE TIME OF SHIFT CHANGE.
--- NOTE | 2020-05-09 03:55 | NUR ---
SHIFT SUMMARY ADMITTED FOR SEPSIS/RT LEG CELLULITIS. FULL CODE. PLAN IS FOR POSSIBLE DC ON SUNDAY W/HH. SHE MAY NEED A PICC LINE SO THAT SHE MAY RECEIVE VANCO OUTPT. HOME HEALTH NURSES CAN ADMIN. RT LEG IS WEEPING FLUID IN AMOUNTS REQUIRING PADS UNDERNEATH TO BE CHANGED FREQUENTLY. IV ANTIBIOTICS ARE SCHEDULED. NYSTATIN POWDER APPLIED TO FOLDS OF SKIN. SHE IS NONCOMPLIANT W/CPAP USE.
[2020-05-09 05:25] LABS: Anion Gap 6 mmol/L (6-16); Blood Urea Nitrogen 8 mg/dL (8-24); Bun/Creatinine Ratio 10.1 (12.0-20.0); CO2, Blood 28 mmol/L (21-32); Calcium, Blood 8.2 mg/dL (8.5-10.1); Chloride, Blood 106 mmol/L (98-108); Creatinine, Blood 0.79 mg/dL (0.40-1.00); Glomerular Filtration Rate >60 (60-); Glucose, Blood 101 mg/dL (70-99); Potassium, Blood 3.6 mmol/L (3.5-5.5); Sodium, Blood 140 mmol/L (136-145)
--- NOTE | 2020-05-09 12:21 | NUR ---
CALLED PHARMACY- PT CEFAZOLIN CHANGED IN FREQUENCY FROM Q8 TO Q6 PT RECIEVED A DOSE AT 0720 AND HAS ANOTHER SHEDULED NOW. PER PHA MEGAN BARON TO GIVE NOW. PICC LINE CURRENTLY BEING PLACED WILL START SOON PLACEMENT IS COMPLETED.
--- NOTE | 2020-05-09 19:24 | NUR ---
SHIFT SUMMARY- PT ALERT AND ORIENTED. PT WEEPING EDEMA HAS SLOWED THIS EVENING, WATER BLISTERS ON THE LEG ARE RUPTURING SO THERE ARE OPEN AREAS. THREE CHUCKS AND TWO ATTENDS WERE BEING USED AT THE BEGINNING OF THE SHIFT TO KEEP THE MOISTURE WICKED AWAY. PT HAS BEEN MEDICATED 2 TIMES FOR PAIN THIS SHIFT. PICC LINE PLACED TODAY DRAWS WELL PER REPORT FROM PICC RN WHO PLACED IT. PT WAS ABLE TO WORK WITH THERAPY TODAY. A LIFT WAS USED TO TRANSFER THE PT TO THE CHAIR THEN SHE WALKED WITH THERAPY (SBGA + FWW) INDEPENDENTLY TO THE BATHROOM. PT HAS A MEDIUM SIZED BM AND WALKED BACK TO THE RECLINER WITH NURSING STAFF WHERE A LIFT WAS USED TO GET HER BACK INTO THE BED. LIFT IS NEEDED FOR IN AND OUT OF BED D/T FRAGILE FLESH COVERING THE WATER BLISTERS (TO PREVENT TEARING THE SKIN) AND BECAUSE THE PT IS STILL WEAK AND THE BED IS HIGHER THAN SHE CAN SAFELY REACH (BARRIATRIC BED). PT REALY DOES NOT WANT TO GO TO SNF IF AT ALL POSSIBLE. SHE STATED SHE WOULD LOVE TO GO HOME WITH HOME HEALTH AND OUT PT INFUSION CLINIC ORDERS. ALL PASSED ON IN BEDSIDE REPORT TO NIGHT RN.
--- NOTE | 2020-05-10 09:30 | NUR ---
44 year old female with morbid obesity & chronic lymphedema With acute draining cellulitis rt le & multiple other sites damaged by moisture & edema. Continues on IV antibiotic Q 6 hrs via PICC line. HAs bray due to moisture damage & falls with toileting & diuretic use prior to admission. Multiple fluid filled blisters rt le cleansed with karacleanse & barrir cream applied to promote wound healing. PT says possible dc to SNF. PT has very poor oral intake , max 2 or 3 for bed mobility plus lift PT.
[2020-05-10 10:40] LABS: BASOPHILS ABSOLUTE AUTO 0.03 K/mm3 (0.00-0.23); BASOPHILS PERCENT AUTO 1 % (0-2); EOSINOPHILS ABSOLUTE AUTO 0.19 K/mm3 (0.00-0.68); EOSINOPHILS PERCENT AUTO 4 % (0-6); Hemoglobin 10.8 g/dL (11.5-16.0); IMMATURE GRAN ABSOLUTE AUTO 0.04 K/mm3 (0.00-0.10); IMMATURE GRAN PERCENT AUTO 1 % (0-1); LYMPHOCYTES ABSOLUTE AUTO 1.05 K/mm3 (0.84-5.20); LYMPHOCYTES PERCENT AUTO 21 % (21-46); MONOCYTES ABSOLUTE AUTO 0.43 K/mm3 (0.16-1.47); MONOCYTES PERCENT AUTO 9 % (4-13); Mean Corpuscular HGB Conc 31.8 g/dL (31.5-36.5); Mean Corpuscular Volume 98 fL (80-100); Mean Platelet Volume 10.7 fL (9.1-12.4); NEUTROPHILS ABSOLUTE AUTO 3.34 K/mm3 (1.96-9.15); NEUTROPHILS PERCENT AUTO 66 % (41-73); Platelet Count 166 K/mm3 (150-400); RDW Coefficient Variation 12.7 % (11.7-14.2); RDW Standard Deviation 45.6 fL (35.1-46.3); Red Blood Cell Count 3.48 M/mm3 (3.80-5.20); White Blood Cell Count 5.08 K/mm3 (4.00-11.30)
[2020-05-10 10:48] LABS: Anion Gap 5 mmol/L (6-16); Blood Urea Nitrogen 8 mg/dL (8-24); Bun/Creatinine Ratio 10.1 (12.0-20.0); CO2, Blood 30 mmol/L (21-32); Calcium, Blood 8.3 mg/dL (8.5-10.1); Chloride, Blood 105 mmol/L (98-108); Glomerular Filtration Rate >60 (60-); Glucose, Blood 109 mg/dL (70-99); Potassium, Blood 3.5 mmol/L (3.5-5.5); Sodium, Blood 140 mmol/L (136-145)
--- NOTE | 2020-05-10 17:00 | NUR ---
SUMMARY PT IS A/O X4, PLEASANT AFFECT. HX OBESITY & BLE LYMPHEDEMA. SHE IS IN HOSP FOR R LEG CELLULITIS, SITE IS RED, SWOLLEN, WARM w WEEPING OPEN AREAS. OPEN TO AIR. SHE WAS GIVEN COMPLETE BEDBATH THIS AM w EMPHASIS ON RLE & SKINFOLDS. BARRIER OINT APPLIED RLE, MILD HEALING PANNUS RASH NOTED, NYSTATIN POWDER PER ORDER. MEPLEX FOAM PROTECTORS TO BUTTOCKS. PT STATE R LEG PAINFUL HOWEVER "BEARABLE", STATE DOES NOT LIKE TO TAKE NARCOTIC PAIN MEDS. SHE WAS UP w LIFT TO RECLINER FOR PT/OT, STAYED UP FOR AN HOUR THEN BACK TO BED w LIFT. SHE IS ABLE TO PULL HER SELF UP IN BED. PILLOWS PROVIDED FOR SUPPORT. SHE IS ON AIR MATTRESS. HEEL PROTECTORS PROVIDED. IV ANTIBX CONT. AFEBRILE, VSS.
--- NOTE | 2020-05-10 21:32 | NUR ---
PT COMPLAINING OF ABDOMINAL PAIN, NURSE NOTIFIED.
[2020-05-11 06:00] LABS: BASOPHILS ABSOLUTE AUTO 0.02 K/mm3 (0.00-0.23); BASOPHILS PERCENT AUTO 0 % (0-2); EOSINOPHILS ABSOLUTE AUTO 0.19 K/mm3 (0.00-0.68); EOSINOPHILS PERCENT AUTO 4 % (0-6); Hematocrit 32.6 % (33.0-51.0); Hemoglobin 10.5 g/dL (11.5-16.0); IMMATURE GRAN ABSOLUTE AUTO 0.05 K/mm3 (0.00-0.10); IMMATURE GRAN PERCENT AUTO 1 % (0-1); LYMPHOCYTES ABSOLUTE AUTO 1.18 K/mm3 (0.84-5.20); LYMPHOCYTES PERCENT AUTO 26 % (21-46); MONOCYTES ABSOLUTE AUTO 0.43 K/mm3 (0.16-1.47); MONOCYTES PERCENT AUTO 10 % (4-13); Mean Corpuscular HGB 31.7 pg (26.0-34.0); Mean Corpuscular HGB Conc 32.2 g/dL (31.5-36.5); Mean Corpuscular Volume 99 fL (80-100); Mean Platelet Volume 11.1 fL (9.1-12.4); NEUTROPHILS ABSOLUTE AUTO 2.67 K/mm3 (1.96-9.15); NEUTROPHILS PERCENT AUTO 59 % (41-73); Platelet Count 168 K/mm3 (150-400); RDW Coefficient Variation 13.2 % (11.7-14.2); RDW Standard Deviation 46.3 fL (35.1-46.3); Red Blood Cell Count 3.31 M/mm3 (3.80-5.20); White Blood Cell Count 4.54 K/mm3 (4.00-11.30)
[2020-05-11 07:18] LABS: Anion Gap 6 mmol/L (6-16); Blood Urea Nitrogen 7 mg/dL (8-24); Bun/Creatinine Ratio 8.5 (12.0-20.0); CO2, Blood 29 mmol/L (21-32); Calcium, Blood 8.2 mg/dL (8.5-10.1); Chloride, Blood 106 mmol/L (98-108); Creatinine, Blood 0.82 mg/dL (0.40-1.00); Glomerular Filtration Rate >60 (60-); Glucose, Blood 95 mg/dL (70-99); Potassium, Blood 3.5 mmol/L (3.5-5.5); Sodium, Blood 141 mmol/L (136-145)
--- NOTE | 2020-05-11 16:49 | NUR ---
SUMMARY PT IS A/O X4, PLEASANT AFFECT. SHE HAS CHRONIC BLE LYMPHEDEMA, ACUTE RLE CELLULITIS, R LEG CONTINUES RED, SWOLLEN w PATCHES OF SLUFFING SKIN, WEEPING. WBC WNL, SHE HAS BEEN AFEBRILE. IV ANTIBX CONTINUE. NOBLE CATH CONTINUES @ THIS TIME/DR SARAVIA. COMPLETE BEDBATH PROVIDED. BARRIER OINT TO BUTTOCKS REDNESS & RLE CELLULITIS. PT UP IN RECLINER FOR PT/OT TODAY VIA LIFT THEN BACK TO BED. TYLENOL & OXYCODONE GIVEN FOR RLE PAIN CONTROL. IN TO VISIT THIS AFTERNOON. PLAN FOR HER TO D/C HOME w WHEN APPROP, MAYBE TOMORROW. VSS.
--- NOTE | 2020-05-12 05:42 | NUR ---
44 YEAR OLD MOBID OBES FEMALE WT OVER 500 POUNDS CONTINES WITH LYMPHEDEMA & CELLULITIS. HX OF CERVICAL CANCER WITH HYSTERECTOMY AGE 23 WT AT THAT TIME 109 POUNDS. DEFORMING LYMPHEDEMA X 3 YEARS. FALLS MULTIPLE WITH DIURETIC USE OF LASIX AT HOME. PT HAS LT UPPER EXTREMITY PICC LINE SINGLE LUMEN FOR ANTIBIOTIC Q 6 HOURS. HAS CPAP SETUP AT BEDSIDE BUT DOES NOT USE. BIOXX WITH NO ALARMS. PTS OBESITY PREVENTS SAFE MOBILTY. HAS BEEN LIFT TO RECLINER THEN ABLE TO STAND AND AMBULATE SHORT DISTANCES. BILAT LE DEFORMED BY LYMPHEDEMA 7 DENUDED SKIN IMPROVING WITH KARACLEANSE & BARRIER & CALMASEPTIC TO MULTIPLE BLISTERS. DECREASED DRAINAGE LT LE STOPPED DRAINING HAS RT THIGH BUT CONTINUES WITH RT INNER CELLULITS BLISTERS DRYING PEELING. HAS NOBLE CATH CURRENTLY TO PREVENT FURTHER SKIN BREAKDOWN. PT PLANNING FOR POTENTIAL DC HOME TODAY TO FAMILY CARE. SON & DTR ADULT LIVE WITH WITH PT WELL SEVERAL GRANDCHILDREN. PT PLANNING FOR HOME HEALTH FOR WOUND CARE & MEDICAL MANAGEMENT. PLEASANT & COOPERATIVE, HAS POSITIVE ATTITUDE. GRANDCHILDREN
[2020-05-12 10:05] LABS: BASOPHILS ABSOLUTE AUTO 0.02 K/mm3 (0.00-0.23); BASOPHILS PERCENT AUTO 0 % (0-2); EOSINOPHILS ABSOLUTE AUTO 0.14 K/mm3 (0.00-0.68); EOSINOPHILS PERCENT AUTO 3 % (0-6); Hemoglobin 11.1 g/dL (11.5-16.0); IMMATURE GRAN ABSOLUTE AUTO 0.05 K/mm3 (0.00-0.10); IMMATURE GRAN PERCENT AUTO 1 % (0-1); LYMPHOCYTES ABSOLUTE AUTO 1.07 K/mm3 (0.84-5.20); LYMPHOCYTES PERCENT AUTO 24 % (21-46); MONOCYTES ABSOLUTE AUTO 0.37 K/mm3 (0.16-1.47); MONOCYTES PERCENT AUTO 8 % (4-13); Mean Corpuscular HGB 31.2 pg (26.0-34.0); Mean Corpuscular HGB Conc 31.7 g/dL (31.5-36.5); Mean Corpuscular Volume 98 fL (80-100); Mean Platelet Volume 10.6 fL (9.1-12.4); NEUTROPHILS PERCENT AUTO 64 % (41-73); Platelet Count 193 K/mm3 (150-400); RDW Coefficient Variation 12.8 % (11.7-14.2); RDW Standard Deviation 46.3 fL (35.1-46.3); Red Blood Cell Count 3.56 M/mm3 (3.80-5.20); White Blood Cell Count 4.55 K/mm3 (4.00-11.30)
[2020-05-12 10:11] LABS: Anion Gap 4 mmol/L (6-16); Blood Urea Nitrogen 8 mg/dL (8-24); Bun/Creatinine Ratio 11.3 (12.0-20.0); CO2, Blood 30 mmol/L (21-32); Calcium, Blood 8.3 mg/dL (8.5-10.1); Chloride, Blood 105 mmol/L (98-108); Creatinine, Blood 0.71 mg/dL (0.40-1.00); Glomerular Filtration Rate >60 (60-); Glucose, Blood 133 mg/dL (70-99); Potassium, Blood 3.7 mmol/L (3.5-5.5); Sodium, Blood 139 mmol/L (136-145)
[2020-05-12] MEDS ORDERED: CEPH500 PO (15:46)
[2020-05-12] MEDS ORDERED: GABA100 PO (15:47)
[2020-05-12] MEDS ORDERED: Florastor250 MG PO (15:53)
[2020-05-12] MEDS ORDERED: Veetids 500500 MG PO (15:58)
--- NOTE | 2020-05-12 17:05 | NUR ---
DISCHARGE NOTE PT D/C HOME WITH HOME HEALTH, PERFORMED WOUND CARE AT D/C TO INSTRUCT PT TO PERFORM UNTIL HOME HEALTH CAN FOLLOW UP. PICC LINE D/C BY [facility]. NOBLE CATH D/C, DRESSING CHANGED ON BUTTOCKS PRIOR TO D/C. WOUND PICTURES ON CHART AT D/C. EQUITMENT PERSCRIPTIONS SENT WITH PT AND COPY ON THE CHART. NEW PERSACRIPTIONS SENT TO [facility] IN [place]. PT HAD NO FURTHER QUESTIONS AT D/C. PT ESCORTED OUT IN W/C TO PRIVATE CARE.
== END 2020-05-12 16:42 | disposition home health service (06) | DRG 872 ==
LOC: ER 14:17 → MEDS 17:28
PROVIDERS: Emergency Medicine; Family Medicine; Nurse Practitioner Acute Care; Pharmacist; ADMIT Hospitalist
DX: A40.9 Streptococcal sepsis, unspecified (principal); L03.115 Cellulitis of right lower limb; Z68.45 Body mass index [BMI] 70 or greater, adult; Z20.828 Contact with and (suspected) exposure to other viral communicable diseases; E66.01 Morbid (severe) obesity due to excess calories; I10 Essential (primary) hypertension; Z91.81 History of falling; I89.0 Lymphedema, not elsewhere classified; G47.33 Obstructive sleep apnea (adult) (pediatric); Z85.41 Personal history of malignant neoplasm of cervix uteri; Z87.891 Personal history of nicotine dependence; G43.909 Migraine, unspecified, not intractable, without status migrainosus
CPT/HCPCS: 36415; 36569; 51702; 76770; 76882; 80048; 80053; 80202; 81001; 82565; 83605; 85025; 87040; 87086; 94660; 94762; 96365-59; 96366-59; 96372-59; 96375-59; 97110; 97112; 97116; 97162; 97166; 97530; 97535; 99285-25; A9270; C1751; J0690; J0780; J1200; J1644; J1885; J2405; J3370; J7050

== ENCOUNTER 2020-05-18 20:13 | Inpatient (IN) | payer OTHER ==
[~2020-05-18] VITALS: Ht 162.6 cm; Wt 252.8 kg
[~2020-05-18 20:13] MED LIST changes: +CEPH500 PO; +Florastor250 MG PO; +GABA100 PO; +Veetids 500500 MG PO
[2020-05-18 20:54] LABS: BASOPHILS ABSOLUTE AUTO 0.04 K/mm3 (0.00-0.23); BASOPHILS PERCENT AUTO 1 % (0-2); EOSINOPHILS ABSOLUTE AUTO 0.12 K/mm3 (0.00-0.68); EOSINOPHILS PERCENT AUTO 2 % (0-6); Hematocrit 40.4 % (33.0-51.0); Hemoglobin 12.6 g/dL (11.5-16.0); IMMATURE GRAN ABSOLUTE AUTO 0.02 K/mm3 (0.00-0.10); IMMATURE GRAN PERCENT AUTO 0 % (0-1); LYMPHOCYTES ABSOLUTE AUTO 1.38 K/mm3 (0.84-5.20); LYMPHOCYTES PERCENT AUTO 23 % (21-46); MONOCYTES ABSOLUTE AUTO 0.62 K/mm3 (0.16-1.47); MONOCYTES PERCENT AUTO 10 % (4-13); Mean Corpuscular HGB 30.7 pg (26.0-34.0); Mean Corpuscular HGB Conc 31.2 g/dL (31.5-36.5); Mean Corpuscular Volume 99 fL (80-100); Mean Platelet Volume 10.2 fL (9.1-12.4); NEUTROPHILS ABSOLUTE AUTO 3.92 K/mm3 (1.96-9.15); NEUTROPHILS PERCENT AUTO 64 % (41-73); Platelet Count 241 K/mm3 (150-400); RDW Coefficient Variation 13.3 % (11.7-14.2); RDW Standard Deviation 47.9 fL (35.1-46.3)
[2020-05-18 21:06] LABS: Alanine Aminotransfer (ALT/SGP 34 U/L (12-78); Albumin, Blood 2.8 g/dL (3.4-5.0); Albumin/Globulin Ratio 0.5 (0.8-1.8); Alk Phos 90 U/L (50-136); Anion Gap 7 mmol/L (6-16); Aspartate Aminotrans (AST/SGOT 34 U/L (12-37); Bilirubin, Total 0.7 mg/dL (0.1-1.0); Blood Urea Nitrogen 12 mg/dL (8-24); Bun/Creatinine Ratio 17.1 (12.0-20.0); CO2, Blood 24 mmol/L (21-32); Calcium, Blood 8.7 mg/dL (8.5-10.1); Chloride, Blood 107 mmol/L (98-108); Globulin, Blood 5.3 g/dL (2.2-4.0); Glomerular Filtration Rate >60 (60-); Glucose, Blood 95 mg/dL (70-99); Potassium, Blood 4.4 mmol/L (3.5-5.5); Sodium, Blood 138 mmol/L (136-145); Total Protein, Blood 8.1 g/dL (6.4-8.2)
--- NOTE | 2020-05-18 23:24 | NUR ---
Transfer report from Nu CHAHAL in ER on 44 year old Female with morbid obesity lymphedema & failed outpt treatment for rt le cellulitis. PT known by this RN from last inpt admission & had chosen to go home versus SNF. Await admission.
[2020-05-19 04:57] LABS: BASOPHILS ABSOLUTE AUTO 0.03 K/mm3 (0.00-0.23); BASOPHILS PERCENT AUTO 1 % (0-2); EOSINOPHILS ABSOLUTE AUTO 0.11 K/mm3 (0.00-0.68); EOSINOPHILS PERCENT AUTO 2 % (0-6); Hematocrit 34.6 % (33.0-51.0); IMMATURE GRAN ABSOLUTE AUTO 0.02 K/mm3 (0.00-0.10); IMMATURE GRAN PERCENT AUTO 0 % (0-1); LYMPHOCYTES ABSOLUTE AUTO 1.45 K/mm3 (0.84-5.20); LYMPHOCYTES PERCENT AUTO 28 % (21-46); MONOCYTES ABSOLUTE AUTO 0.63 K/mm3 (0.16-1.47); MONOCYTES PERCENT AUTO 12 % (4-13); Mean Corpuscular HGB 31.2 pg (26.0-34.0); Mean Corpuscular HGB Conc 31.8 g/dL (31.5-36.5); Mean Corpuscular Volume 98 fL (80-100); Mean Platelet Volume 9.8 fL (9.1-12.4); NEUTROPHILS ABSOLUTE AUTO 2.99 K/mm3 (1.96-9.15); NEUTROPHILS PERCENT AUTO 57 % (41-73); Platelet Count 203 K/mm3 (150-400); RDW Coefficient Variation 13.4 % (11.7-14.2); RDW Standard Deviation 47.9 fL (35.1-46.3); Red Blood Cell Count 3.53 M/mm3 (3.80-5.20); White Blood Cell Count 5.23 K/mm3 (4.00-11.30)
[2020-05-19 05:26] LABS: Anion Gap 4 mmol/L (6-16); Blood Urea Nitrogen 12 mg/dL (8-24); Bun/Creatinine Ratio 14.9 (12.0-20.0); CO2, Blood 28 mmol/L (21-32); Calcium, Blood 8.4 mg/dL (8.5-10.1); Chloride, Blood 108 mmol/L (98-108); Creatinine, Blood 0.81 mg/dL (0.40-1.00); Glomerular Filtration Rate >60 (60-); Glucose, Blood 89 mg/dL (70-99); Potassium, Blood 3.9 mmol/L (3.5-5.5); Sodium, Blood 140 mmol/L (136-145)
[2020-05-19 09:21] LABS: Source, Urine Catheter
[2020-05-19 09:47] LABS: Appearance, Urine Clear (Clear); Bilirubin, Urine Neg (Neg); Blood, Urine Neg (Neg); Color, Urine Yellow (P-Yellow); Glucose Qualitative, Urine Neg (Neg); Ketones, Urine Neg (Neg); Leukocyte Esterase, Urine Neg (Neg); Nitrite, Urine Neg (Neg); Protein, Urine Neg (Neg); Urobilinogen, Urine NORM (Normal)
--- NOTE | 2020-05-19 17:00 | NUR ---
Per admit trigger, I met with Eileen to offer information/education on Advanced Directives. She took information and would like to discuss with family. I advised I would remain available.
--- NOTE | 2020-05-19 19:12 | NUR ---
patient had a decent day. bray placed per dr bunn due to patients difficulty getting out of bed r/t cellulitis. vitals stable. continues on iv abx without s/sx of adverse reactions noted or reported. patient calls appropriately for staff assist. patient staying the night for PICC placement and consultation by dr mcnally, SHERRILL GUEVARA, markel. report given to Penny CHAHAL who has assumed patient care.
--- NOTE | 2020-05-20 07:18 | NUR ---
PT continues with massive rt le edema cellulitis lymphedema bilat le. Medicated several times for pain rt le . On bariatric air bed. Wound care & photodoc done.
--- NOTE | 2020-05-20 15:35 | NUR ---
SHIFT SUMMARY PT IS A/O X 4. SHE HAS BEEN MEDICATED FOR MAUSEA X 1 R/T THE PAIN IN HER RIGHT LEG ALONG WITH HER PRN PAIN MEDS. SHE HAS BEEN NAPPING ON AND OFF TODAY. WOUND CARE ORDERS ENTERED PER VERBAL DR ORDERS. DR QUAN SAW THE PT FOR THE CONSULT THIS AFTERNOON. NOBLE REMAINS PATENT. WOUND TO RLE CONTINUES TO WEEP AND DRESSINGS WERE CHANGED. THE PT IS ABLE TO MAKE HER NEEDS KNOWN AND CALLS FOR HELP WHEN NEEDED.
--- NOTE | 2020-05-21 05:07 | NUR ---
SHIFT SUMMARY PT CONTINUES TO BE PAINFUL. RLE WEEPING WITH SEROUS DRAINAGE. EXUDRY CHANGED OFTEN THIS SHIFT TO KEEP AREA CLEANED AND DRY. PT MEDICATED FOR PAIN PER EMAR. IV ABX CONTINUED ORDERED THIS SHIFT. PT PLESANT AND COOPERATIVE WITH CARE. A/OX4. VITALS STABLE. NO ACUTE EVENTS OVERNIGHT. BED IN LOWEST POSITION, CALL LIGHT WITHIN REACH.
[2020-05-21 08:46] LABS: BASOPHILS ABSOLUTE AUTO 0.03 K/mm3 (0.00-0.23); BASOPHILS PERCENT AUTO 1 % (0-2); EOSINOPHILS ABSOLUTE AUTO 0.16 K/mm3 (0.00-0.68); EOSINOPHILS PERCENT AUTO 4 % (0-6); Hematocrit 35.9 % (33.0-51.0); Hemoglobin 11.4 g/dL (11.5-16.0); IMMATURE GRAN ABSOLUTE AUTO 0.01 K/mm3 (0.00-0.10); IMMATURE GRAN PERCENT AUTO 0 % (0-1); LYMPHOCYTES ABSOLUTE AUTO 1.35 K/mm3 (0.84-5.20); LYMPHOCYTES PERCENT AUTO 29 % (21-46); MONOCYTES ABSOLUTE AUTO 0.54 K/mm3 (0.16-1.47); MONOCYTES PERCENT AUTO 12 % (4-13); Mean Corpuscular HGB 31.1 pg (26.0-34.0); Mean Corpuscular HGB Conc 31.8 g/dL (31.5-36.5); Mean Corpuscular Volume 98 fL (80-100); Mean Platelet Volume 9.8 fL (9.1-12.4); NEUTROPHILS PERCENT AUTO 54 % (41-73); Platelet Count 222 K/mm3 (150-400); RDW Coefficient Variation 13.3 % (11.7-14.2); RDW Standard Deviation 48.5 fL (35.1-46.3); Red Blood Cell Count 3.66 M/mm3 (3.80-5.20); White Blood Cell Count 4.59 K/mm3 (4.00-11.30)
[2020-05-21 09:30] LABS: Anion Gap 4 mmol/L (6-16); Blood Urea Nitrogen 15 mg/dL (8-24); Bun/Creatinine Ratio 14.9 (12.0-20.0); CO2, Blood 31 mmol/L (21-32); Calcium, Blood 8.2 mg/dL (8.5-10.1); Chloride, Blood 101 mmol/L (98-108); Creatinine, Blood 1.01 mg/dL (0.40-1.00); Glomerular Filtration Rate >60 (60-); Glucose, Blood 88 mg/dL (70-99); Potassium, Blood 3.8 mmol/L (3.5-5.5); Sodium, Blood 136 mmol/L (136-145)
--- NOTE | 2020-05-21 19:45 | NUR ---
SHIFT SUMMARY [place] COMPLAINED OF RLE PAIN AND GOT OXY TO GOOD EFFECT. EXUDRY AND CHUCKS CHANGED SEVERAL TIMES THROUGHOUT SHIFT, CELLULITIS HAS LOTS OF DRAINAGE. PT ROLLED WELL WITH MIN ASSIST, Q2 TURNS PERFORMED. MEPILEX IN PLACE ON COCCYX TO PREVENT SKIN BREAKDOWN, HEEL PROTECTORS ALSO IN PLACE. NOBLE C/D/I. UNABLE TO GET UP, NEEDS PT ORDER, PASSED ON TO GILLIAN RN TO GET ONE TOMORROW. PT AGRTEEABLE. ATTEMPTED TO GET PT OOB TO BARIATRIC CHAIR, BUT PT STATES THAT THE CHAIR WE HAVE ON THE FLOOR DOESN'T WORK FOR HER, IT ISN'T WIDE ENOUGH AND SO THE LEVERS DON'T KEEP THE CHAIR RECLINED, AND SHE ENDS UP LYING DOWN IN IT, AND SHE FELT THAT SHE MIGHT WELL STAY IN BED. REPORT GIVEN TO GILLIAN RN
--- NOTE | 2020-05-22 04:43 | NUR ---
X RAY NURSE SUMMARY PT A/O X4. MEDICATED FOR PAIN AND MUSCLE SPASMS TONIGHT. THIS MORNING PT IS HYPOTENSIVE. SENIOR PRODUCT DESIGNER'S AIDAN Ruiz AND LACY Ruiz ARE AWARE OF THIS. PT IS MORBIDLY OBESE. SHE SAYS SHE FEELS SOME DIZZINESS WHEN ROLLING IN BED WHICH SHE HASN'T FELT DURING THIS ADMISSION. HOSPITALIST. DR. GARCIA ALSO NOTIFIED OF PT'S LOW BP. HE SAYS TO KEEP MONITORING. PT REQUESTED SOMETHING FOR NAUSEA. ZOFRAN IV GIVEN. PT SAYS SHE THINKS IT IS CAUSED FROM THE PAIN WHICH SHE HAS EXPERIENCED BEFORE. I EDUCATED PT I HAVE TO HOLD PAIN MEDICATION RIGHT NOW BECAUSE PAIN MED CAN FURTHER DECREASE BP. REPOSITIONG PROVIDED THROUGHOUT THE NIGHT. DRESSING TO RIGHT MEDIAL THIGH CHANGED. THERE WAS VERY MINIMAL YELLOW DRAINAGE TO RIGHT MEDIAL THIGH. CALL LIGHT WITHIN REACH. WILL CONTINUE TO MONITOR.
[2020-05-22 05:10] LABS: Anion Gap 5 mmol/L (6-16); Blood Urea Nitrogen 18 mg/dL (8-24); Bun/Creatinine Ratio 19.8 (12.0-20.0); CO2, Blood 30 mmol/L (21-32); Calcium, Blood 8.2 mg/dL (8.5-10.1); Chloride, Blood 100 mmol/L (98-108); Creatinine, Blood 0.91 mg/dL (0.40-1.00); Glomerular Filtration Rate >60 (60-); Glucose, Blood 93 mg/dL (70-99); Potassium, Blood 4.5 mmol/L (3.5-5.5); Sodium, Blood 135 mmol/L (136-145)
--- NOTE | 2020-05-22 11:29 | NUR ---
PT C/O MILD HEADACHE AND OVERALL NOT FEELING WELL. AM VITALS BP 93/73, PULSE 91, RESP 16. PER DR ALDANA, HOLD LASIX AND LISINOPRIL. OKAY TO GIVE OXYCODONE. WILL CONTINUE MONITORING VITALS, AND UPDATE DR WITH ANY CHANGES.
--- NOTE | 2020-05-22 18:31 | NUR ---
SHIFT SUMMARY SHIFT SUMMARY PT A&Ox4. STARTED SHIFT WITH LOW TRENDING BP'S, MILD MCKEON, AND GENERAL MALAISE. PER DR ALDANA, KATHLEEN LISINOPRIL AND LASIX, AND MONITOR VITALS. BP IMPROVED. OTHER VITALS STABLE. SIG BLE EDEMA. PT STATES SHE FEELS LIKE SWELLING IN RLE WORSE THAN YESTERDAY. WOUND CARE PERFORMED X2. SEE EMAR FOR PAIN MED ADMINISTRATION. NO OTHER ACUTE CHANGES AT THIS TIME. WILL CONT TO MONITOR. CALL LIGHT IN REACH.
--- NOTE | 2020-05-22 23:38 | NUR ---
2100 PT GIVEN COMPLETE BED BATH BY DYE JIG OPERATOR X 2; PT TOLERATED ACTIVITY WELL.
--- NOTE | 2020-05-23 03:26 | NUR ---
SHIFT SUMMARY: 44 Y/O MORBID OBESE FEMALE WAS AWAKE MAJORITY OF SHIFT WATCHING TV; PT C/O GENERALIZED PAIN RATED 7/10 AND RECEIVED FLEXERIL 10MG AND ROXICODONE 5MG PO X 2 WITH RELIEF FELT; HAPPY AND COOPERATIVE; NOBLE DRAINING CLEAR YELLOW FLUID; ALERT AND ORIENTED X 4; PT REQUIRES 100% ASSISTANCE WITH ALL ADLS/IADLS FROM NURSING STAFF; PT CONTINUES TO HAVE BILATERAL LOWER EXTREMITY LYMPHEDEMA; DENIES SOB; PT LAYING ON AIR MATTRESS BED AND WAS REPOSITIONED Q2H PER STAFF; BED LOW POSITION WITH CALL LIGHT AT SIDE.
[2020-05-23 05:29] LABS: Anion Gap 6 mmol/L (6-16); Blood Urea Nitrogen 18 mg/dL (8-24); Bun/Creatinine Ratio 21.1 (12.0-20.0); CO2, Blood 30 mmol/L (21-32); Calcium, Blood 8.5 mg/dL (8.5-10.1); Chloride, Blood 101 mmol/L (98-108); Creatinine, Blood 0.85 mg/dL (0.40-1.00); Glomerular Filtration Rate >60 (60-); Glucose, Blood 91 mg/dL (70-99); Potassium, Blood 4.3 mmol/L (3.5-5.5); Sodium, Blood 137 mmol/L (136-145)
--- NOTE | 2020-05-23 13:12 | NUR ---
DIFICULTY STANDING PT WANTED TO TRY TO WALK TO BATHROOM TO HAVE A BOWEL MOVEMENT. STAFF ASSISTED PT UP TO STANDING. PT BP CHECKED PRIOR TO STANDING AT 108/65. ONCE SITTING ON SIDE OF BED. PT FELT DIZZY. AFTER SITTING FOR A FEW MINUTES, PT FELT THAT DIZZINESS RESOLVED. PT STOOD WITH CANE AND HELP FROM STAFF. PT UNABLE TO WALK. INSTEAD SHE TRANSFERED TO CHAIR. PT STATES "I COULDN'T HAVE WALKED TO THE BATHROOM". STAFF AGREED IT WAS TO UNSAFE FOR HER TO WALK. PT UP IN CHAIR CURRENTLY, FINISHING LUNCH. CALL LIGHT IN REACH.
--- NOTE | 2020-05-23 18:02 | NUR ---
PT REFUSED ROUTINE IV ROTATION DUE TO CURRENT IV PATENCY
--- NOTE | 2020-05-23 18:37 | NUR ---
SHIFT SUMMARY PT A&Ox4. PT REPORTED NO BM X5 DAYS BECAUSE SHE CAN'T GO ON BED ROY AND HASN'T BEEN ABLE TO SAFELY GET UP OUT OF BED TO USE BATHROOM. PT AGREED TO STOOL SOFTNER AND ATTEMPTED TO GET UP. SUCCESSFUL TRANSFER TO RECLINER FOR 1+ HOURS. NO BM. DR ALDANA ORDERED PT/OT. PLANNING TO SEE PT TOMORROW. WOUND AND CATH CARE PERFORMED. NARCOTICS DC'D AND LASIX REORDERED TODAY. MONITORING FOR LOW BP'S AND DIZZINESS. PAIN MANAGEMENT FOR LYMPHEDEMA AND HEADACHE WITH TYLENOL AND ICE PACKS TO NECK. NOBLE DRAINING TO GRAVITY. PT RESTING IN BED WITH CALL LIGHT IN REACH.
--- NOTE | 2020-05-24 03:30 | NUR ---
SHIFT SUMMARY PATIENT HAD NO ACUTE CHANGES OBSERVED. AXOX 4 AND BEDREST. MORBID OBESE. PIV REMAINS INTACT. IV ABX INFUSED. NOBLE PATENT AND DRAINING TO GRAVITY. DENIES SOB AND N/V. FLEXERIL 10 MG GIVEN FOR LEGS MUSCLE SPASM. BILATERAL LOWER EXTREMITY LYMPHEDEMA. VSS/AFEBRILE. COOPERATIVE WITH CARE. CALL LIGHT IN REACH. BED IN LOWEST POSITION. WILL CONTINUE TO MONITOR UNTIL DAY SHIFT NURSE ASSUMES CARE.
[2020-05-24 05:59] LABS: Anion Gap 3 mmol/L (6-16); Blood Urea Nitrogen 18 mg/dL (8-24); Bun/Creatinine Ratio 23.4 (12.0-20.0); CO2, Blood 32 mmol/L (21-32); Calcium, Blood 8.4 mg/dL (8.5-10.1); Chloride, Blood 102 mmol/L (98-108); Creatinine, Blood 0.77 mg/dL (0.40-1.00); Glomerular Filtration Rate >60 (60-); Glucose, Blood 93 mg/dL (70-99); Potassium, Blood 3.9 mmol/L (3.5-5.5); Sodium, Blood 137 mmol/L (136-145)
[2020-05-24 06:33] LABS: BASOPHILS ABSOLUTE AUTO 0.03 K/mm3 (0.00-0.23); BASOPHILS PERCENT AUTO 1 % (0-2); EOSINOPHILS ABSOLUTE AUTO 0.16 K/mm3 (0.00-0.68); EOSINOPHILS PERCENT AUTO 5 % (0-6); Hematocrit 34.1 % (33.0-51.0); Hemoglobin 11.1 g/dL (11.5-16.0); IMMATURE GRAN PERCENT AUTO 0 % (0-1); LYMPHOCYTES ABSOLUTE AUTO 1.23 K/mm3 (0.84-5.20); LYMPHOCYTES PERCENT AUTO 35 % (21-46); MONOCYTES ABSOLUTE AUTO 0.44 K/mm3 (0.16-1.47); MONOCYTES PERCENT AUTO 13 % (4-13); Mean Corpuscular HGB 31.5 pg (26.0-34.0); Mean Corpuscular HGB Conc 32.6 g/dL (31.5-36.5); Mean Corpuscular Volume 97 fL (80-100); Mean Platelet Volume 10.1 fL (9.1-12.4); NEUTROPHILS ABSOLUTE AUTO 1.66 K/mm3 (1.96-9.15); NEUTROPHILS PERCENT AUTO 47 % (41-73); Platelet Count 203 K/mm3 (150-400); RDW Coefficient Variation 12.9 % (11.7-14.2); RDW Standard Deviation 45.7 fL (35.1-46.3); Red Blood Cell Count 3.52 M/mm3 (3.80-5.20); White Blood Cell Count 3.52 K/mm3 (4.00-11.30)
--- NOTE | 2020-05-24 16:48 | NUR ---
SHIFT SUMMARY PT SWELLING IN R LEG IMPROVED FROM YESTERDAY. NOBLE PATENT & DRAINING. PT BIGGEST COMPLAINT IS FEELING CONSTIPATED. PT MEDICATED PER EMAR AND FINALLY HAD A LARGE BM THIS AFTERNOON. PT STATES SHE FEELS MUCH BETTER NOW. PT UP TO RECLINER AND AMBULATED TO BATHROOM WITH PHYSICAL THERAPY AND THIS RN EARLIER IN SHIFT. DIFFICULTY GETTING OFF TOILET AFTER USE, BUT WAS ABLE TO WALK BACK TO CHAIR WITH HELP. NO OTHER ACUTE CHANGES IN ASSESSMENT AT THIS TIME. PT DENIED DIZZINESS THIS SHIFT. EXUDRY CHANGED PRN ON R THIGH WOUND. WILL CONTINUE TO MONITOR UNTIL TURNOVER IS COMPLETE.
--- NOTE | 2020-05-25 04:07 | NUR ---
SHIFT SUMMARY ADMITTED FOR FAILURE OF OUTPT TX OF CELLULITIS (RT THIGH). LIFT PT. SHE USES A FWW AT HOME. HOPEFUL FOR DC HOME TODAY. PAIN MEDS WITHELD DUE TO HYPOTENSION. NOBLE CATHETER IS PATENT. BLOOD CULTURES NEGATIVE. DR QUAN IS CONSULT. IV ANTIBIOTICS ARE SCHEDULED.
[2020-05-25] MEDS ORDERED: VISBIOME PROBIOTIC (09:51)
[2020-05-25] MEDS ORDERED: ACET325 PO (09:52)
[2020-05-25] MEDS ORDERED: DOCU100 PO (09:53)
[2020-05-25] MEDS ORDERED: MIRALAX17 GM PO (09:54)
--- NOTE | 2020-05-25 13:07 | NUR ---
Discharge Summary A/Ox4, discharged to home with HH. Reviewed discharge paperwork with patient, no questions at this time. IV removed, WNL. Meds faxed to preferred pharmacy, f/u appointment scheduled. Copy of discharge paperwork provided. Matos removed. Escorted by GLAZING DEPARTMENT SUPERVISOR via w/c, transportation provided by [employer]. Physical therapy worked with patient today, lift for transfers from bed to chair, SBA with FWW/Cane for ambulation. assisted patient with dressing in regular clothes. Wound care completed with wound spray and exudry dressing.
== END 2020-05-25 12:59 | disposition home health service (06) | DRG 603 ==
LOC: ER 20:13 → MEDS 20:14
PROVIDERS: Emergency Medicine; Family Medicine; Hospitalist; Nurse Practitioner Acute Care; ADMIT Family Medicine
DX: L03.115 Cellulitis of right lower limb (principal); Z68.45 Body mass index [BMI] 70 or greater, adult; L89.612 Pressure ulcer of right heel, stage 2; L89.329 Pressure ulcer of left buttock, unspecified stage; L89.319 Pressure ulcer of right buttock, unspecified stage; L89.159 Pressure ulcer of sacral region, unspecified stage; Z20.828 Contact with and (suspected) exposure to other viral communicable diseases; E66.01 Morbid (severe) obesity due to excess calories; G43.909 Migraine, unspecified, not intractable, without status migrainosus; G47.33 Obstructive sleep apnea (adult) (pediatric); I10 Essential (primary) hypertension; I89.0 Lymphedema, not elsewhere classified; I95.9 Hypotension, unspecified; K21.9 Gastro-esophageal reflux disease without esophagitis; K59.00 Constipation, unspecified; Z87.891 Personal history of nicotine dependence; R19.7 Diarrhea, unspecified; Z85.41 Personal history of malignant neoplasm of cervix uteri
CPT/HCPCS: 36415; 76882; 80048; 80053; 81003; 83605; 85025; 85651; 86060; 86141; 86215; 87040; 96365; 96366; 97110; 97116; 97162; 97530; 99284-25; A9270; A9270-GY; G0378; J0690; J1170; J1650; J2405; J7040

== ENCOUNTER → 2020-06-07 | Outpatient (CLI) | payer OTHER ==
[~2020-06-07] MED LIST changes: +DOCU100 PO; +MIRALAX17 GM PO; +VISBIOME PROBIOTIC
== END | disposition home or self-care (01) ==
LOC: LAB SHORT 15:56 → LAB 15:56
DX: S81.801A Unspecified open wound, right lower leg, initial encounter (principal); I89.0 Lymphedema, not elsewhere classified; L03.115 Cellulitis of right lower limb; E66.01 Morbid (severe) obesity due to excess calories; R26.89 Other abnormalities of gait and mobility
CPT/HCPCS: 87070; 87205

== ENCOUNTER 2020-09-16 00:42 | Day surgery (SDC) | payer OTHER ==
[~2020-09-16 00:42] MED LIST changes: -ALBU90OI INH; -Bactrim Ds Tab1 EACH PO; -CEFD300 PO; -Diflucan100 MG PO; -ERGO50000 PO; -ERTAPENEM1 G1 IM; -GABA300 PO; -HYDROCHLOROTHIA25 MG PO; -IBU800 M1 PO; -K-Dur 20 meq T20 MEQ PO; -LISI20; -NYAMYC15 G1 TOP; -PENVK500 PO; -POTA10T PO; -VITAMIN A PO; -Vitamin E100 UNIT PO
--- NOTE | 2020-09-16 10:20 | NUR ---
URINE SAMPLE SENT TO LAB PER PT REQUEST. CALLED LAB, THEY HAVE AN OUTPATIENT ORDER FOR UDS WHICH THEY WILL RUN ON URINE COLLECTED FROM NOBLE INSERTION THIS MORNING.
[2020-09-16] MEDS ORDERED: ALBU90OI INH (11:14)
[2020-09-16] MEDS ORDERED: ERGO50000 PO (11:14)
[2020-09-16] MEDS ORDERED: CYCL10 PO (11:20)
[2020-09-16] MEDS ORDERED: IBU800 M1 PO (11:21)
[2020-09-16] MEDS ORDERED: FURO20 (11:21)
[2020-09-16] MEDS ORDERED: LISI20 (11:22)
[2020-09-16] MEDS ORDERED: HYDROCHLOROTHIA25 MG PO (11:22)
[2020-09-16] MEDS ORDERED: Norco 5-325 Ta1 EACH PO (11:23)
[2020-09-16] MEDS ORDERED: NYAMYC15 G1 TOP (11:23)
[2020-09-16] MEDS ORDERED: OMEP20ER PO (11:23)
[2020-09-16] MEDS ORDERED: K-Dur 20 meq T20 MEQ PO (11:24)
[2020-09-16] MEDS ORDERED: Vitamin E100 UNIT PO (11:25)
[2020-09-16] MEDS ORDERED: VITAMIN A PO (11:25)
== END 2020-09-16 10:20 | disposition home or self-care (01) ==
LOC: ATC 00:42
DX: I89.0 Lymphedema, not elsewhere classified (principal); E66.01 Morbid (severe) obesity due to excess calories; R26.89 Other abnormalities of gait and mobility; B37.2 Candidiasis of skin and nail; G47.33 Obstructive sleep apnea (adult) (pediatric); I10 Essential (primary) hypertension; R26.9 Unspecified abnormalities of gait and mobility; Z79.899 Other long term (current) drug therapy; Z87.891 Personal history of nicotine dependence; Z88.5 Allergy status to narcotic agent; Z68.45 Body mass index [BMI] 70 or greater, adult
CPT/HCPCS: 51702

== ENCOUNTER → 2020-09-16 | Outpatient (CLI) | payer OTHER ==
[~2020-09-16] MED LIST changes: +ALBU90OI INH; +Bactrim Ds Tab1 EACH PO; +CEFD300 PO; +Diflucan100 MG PO; +ERGO50000 PO; +ERTAPENEM1 G1 IM; +GABA300 PO; +HYDROCHLOROTHIA25 MG PO; +IBU800 M1 PO; +K-Dur 20 meq T20 MEQ PO; +LISI20; +NYAMYC15 G1 TOP; +PENVK500 PO; +POTA10T PO; +VITAMIN A PO; +Vitamin E100 UNIT PO
[2020-09-16 11:24] LABS: U Amphetamine Screen Not Detected; U Barbituate Screen Not Detected; U Benzodiazapine Screen Not Detected; U Buprenorphine Screen Not Detected; U Cannabinoids Screen Not Detected; U Cocaine Screen Not Detected; U Methadone Screen Not Detected; U Methamphetamine Screen Not Detected; U Opiates Screen Not Detected; U Oxycodone Screen Not Detected; U Phencyclidine Screen Not Detected; U Propoxyphene Screen Not Detected
== END ==
LOC: PLD 08:14
PROVIDERS: Surgery
DX: Z01.812 Encounter for preprocedural laboratory examination (principal); I10 Essential (primary) hypertension; E66.01 Morbid (severe) obesity due to excess calories; Z68.45 Body mass index [BMI] 70 or greater, adult
CPT/HCPCS: 87338

== ENCOUNTER 2020-09-29 08:33 | Day surgery (SDC) | payer OTHER ==
[~2020-09-29 08:33] MED LIST changes: -Bactrim Ds Tab1 EACH PO; -CEFD300 PO; -Diflucan100 MG PO; -ERTAPENEM1 G1 IM; -GABA300 PO; -PENVK500 PO; -POTA10T PO
--- NOTE | 2020-09-29 13:15 | NUR ---
UA TAKEN FROM FROM CATHETER, URINE VERY CLOUDY. PT STAES CATHETER HAS BEEN PASSING BLOOD AND HAS BEEN PAINFULL.
== END 2020-09-29 12:11 | disposition home or self-care (01) ==
LOC: ATC 08:33
DX: R31.9 Hematuria, unspecified (principal); G47.33 Obstructive sleep apnea (adult) (pediatric); I10 Essential (primary) hypertension; E66.01 Morbid (severe) obesity due to excess calories; Z87.891 Personal history of nicotine dependence; Z88.5 Allergy status to narcotic agent; Z91.018 Allergy to other foods; Z88.8 Allergy status to other drugs, medicaments and biological substances; Z79.899 Other long term (current) drug therapy; Z68.45 Body mass index [BMI] 70 or greater, adult
CPT/HCPCS: P9612

== ENCOUNTER → 2020-09-29 | Outpatient (CLI) | payer OTHER ==
[~2020-09-29] MED LIST changes: +ALBU90OI INH; +Bactrim Ds Tab1 EACH PO; +CEFD300 PO; +Diflucan100 MG PO; +ERGO50000 PO; +ERTAPENEM1 G1 IM; +GABA300 PO; +HYDROCHLOROTHIA25 MG PO; +IBU800 M1 PO; +K-Dur 20 meq T20 MEQ PO; +LISI20; +NYAMYC15 G1 TOP; +PENVK500 PO; +POTA10T PO; +VITAMIN A PO; +Vitamin E100 UNIT PO
[2020-09-29 16:03] LABS: Amorphous Mod (0-Heavy); Bacteria Many /hpf; Red Blood Cells, Urine 25-50 /hpf (0-2); Squamous Epithelial Cells Few /hpf (Few); White Blood Cells, Urine 50-100 /hpf (0-5)
== END | disposition home or self-care (01) ==
LOC: LAB SHORT 12:50 → LAB 12:50
PROVIDERS: Nurse Practitioner Family
DX: R31.9 Hematuria, unspecified (principal)
CPT/HCPCS: 81015; 87077; 87086; 87186

== ENCOUNTER 2020-11-19 00:42 | Day surgery (SDC) | payer OTHER ==
[~2020-11-19] VITALS: Wt 271.0 kg
--- NOTE | 2020-11-19 15:09 | NUR ---
Received a call from the [facility]. Pt is having an echo in the ICU 10 as an outpatient due to bed availability in the [facility]. Two STEFAN RNs went to ICU 10 and placed bray catheter. Pt weighed on standing scale. 271 kg. Pt's able to assist with transfers. [facility] transport called and they will come warehouse picker Eileen to take her home.
== END 2020-11-19 14:45 | disposition home or self-care (01) ==
LOC: ATC 00:42
DX: I89.0 Lymphedema, not elsewhere classified (principal); E66.01 Morbid (severe) obesity due to excess calories; N39.3 Stress incontinence (female) (male); I10 Essential (primary) hypertension; G47.33 Obstructive sleep apnea (adult) (pediatric); Z87.891 Personal history of nicotine dependence
CPT/HCPCS: 51702

== ENCOUNTER 2020-12-03 12:41 | Emergency (ER) | payer OTHER ==
[~2020-12-03] VITALS: Ht 162.6 cm; Wt 271.2 kg
[2020-12-03 13:15] LABS: BASOPHILS ABSOLUTE AUTO 0.02 K/mm3 (0.00-0.23); BASOPHILS PERCENT AUTO 0 % (0-2); EOSINOPHILS ABSOLUTE AUTO 0.03 K/mm3 (0.00-0.68); EOSINOPHILS PERCENT AUTO 1 % (0-6); Hematocrit 39.2 % (33.0-51.0); Hemoglobin 13.1 g/dL (11.5-16.0); IMMATURE GRAN ABSOLUTE AUTO 0.02 K/mm3 (0.00-0.10); IMMATURE GRAN PERCENT AUTO 0 % (0-1); LYMPHOCYTES ABSOLUTE AUTO 0.56 K/mm3 (0.84-5.20); LYMPHOCYTES PERCENT AUTO 10 % (21-46); MONOCYTES ABSOLUTE AUTO 0.25 K/mm3 (0.16-1.47); MONOCYTES PERCENT AUTO 5 % (4-13); Mean Corpuscular HGB 30.9 pg (26.0-34.0); Mean Corpuscular HGB Conc 33.4 g/dL (31.5-36.5); Mean Corpuscular Volume 93 fL (80-100); Mean Platelet Volume 9.6 fL (9.1-12.4); NEUTROPHILS PERCENT AUTO 84 % (41-73); Platelet Count 212 K/mm3 (150-400); RDW Coefficient Variation 13.2 % (11.7-14.2); RDW Standard Deviation 44.5 fL (35.1-46.3); Red Blood Cell Count 4.24 M/mm3 (3.80-5.20); White Blood Cell Count 5.38 K/mm3 (4.00-11.30)
[2020-12-03 13:21] LABS: Source, Urine Catheter
[2020-12-03 13:26] LABS: Bilirubin, Urine Neg (Neg); Blood, Urine 1+ (Neg); Glucose Qualitative, Urine Neg (Neg); Ketones, Urine Neg (Neg); Leukocyte Esterase, Urine Neg (Neg); Nitrite, Urine Neg (Neg); Protein, Urine Neg (Neg); Specific Gravity, Urine 1.005 (1.003-1.022); Urobilinogen, Urine NORM (Normal)
[2020-12-03 13:44] LABS: Alanine Aminotransfer (ALT/SGP 30 U/L (12-78); Albumin, Blood 2.9 g/dL (3.4-5.0); Albumin/Globulin Ratio 0.6 (0.8-1.8); Alk Phos 89 U/L (50-136); Anion Gap 6 mmol/L (6-16); Aspartate Aminotrans (AST/SGOT 27 U/L (12-37); Bilirubin, Total 0.8 mg/dL (0.1-1.0); Blood Urea Nitrogen 23 mg/dL (8-24); Bun/Creatinine Ratio 23.4 (12.0-20.0); C-REACTIVE PROTEIN, EXT RANGE 0.767 mg/dL (0.000-0.300); CO2, Blood 33 mmol/L (21-32); CPK Creatine Kinase 31 U/L (26-193); Calcium, Blood 9.2 mg/dL (8.5-10.1); Chloride, Blood 96 mmol/L (98-108); Creatinine, Blood 0.98 mg/dL (0.40-1.00); Globulin, Blood 5.1 g/dL (2.2-4.0); Glomerular Filtration Rate >60 (60-); Glucose, Blood 106 mg/dL (70-99); Potassium, Blood 3.3 mmol/L (3.5-5.5); Sodium, Blood 135 mmol/L (136-145)
[2020-12-03 13:51] LABS: Appearance, Urine Clear (Clear); Bacteria Rare /hpf; Color, Urine Yellow (P-Yellow); Red Blood Cells, Urine 0-2 /hpf (0-2); Squamous Epithelial Cells Not Seen /hpf (Few); White Blood Cells, Urine Not Seen /hpf (0-5)
[2020-12-03] MEDS ORDERED: Bactrim Ds Tab1 EACH PO (14:18)
[2020-12-03] MEDS ORDERED: Diflucan100 MG PO (14:18)
[2020-12-03] MEDS ORDERED: CEPH500 PO (14:18)
== END 2020-12-03 17:50 | disposition home or self-care (01) ==
LOC: ER 12:41
PROVIDERS: Emergency Medicine
DX: L03.115 Cellulitis of right lower limb (principal); I10 Essential (primary) hypertension; E66.01 Morbid (severe) obesity due to excess calories; Z68.45 Body mass index [BMI] 70 or greater, adult; Z88.5 Allergy status to narcotic agent; Z79.899 Other long term (current) drug therapy; Z87.891 Personal history of nicotine dependence
CPT/HCPCS: 36415; 80053; 81001; 82550; 85025; 86140; 87077; 87086; 87186; 96365; 99284-25; A9270; J0690; J2310

== ENCOUNTER → 2020-12-14 | Outpatient (CLI) | payer OTHER ==
[~2020-12-14] MED LIST changes: +Bactrim Ds Tab1 EACH PO; +CEFD300 PO; +Diflucan100 MG PO; +ERTAPENEM1 G1 IM; +GABA300 PO; +PENVK500 PO; +POTA10T PO
[2020-12-14 18:48] LABS: Anion Gap 3 mmol/L (6-16); Blood Urea Nitrogen 17 mg/dL (8-24); CO2, Blood 30 mmol/L (21-32); Calcium, Blood 8.9 mg/dL (8.5-10.1); Chloride, Blood 106 mmol/L (98-108); Glomerular Filtration Rate >60 (60-); Glucose, Blood 98 mg/dL (70-99); Sodium, Blood 139 mmol/L (136-145)
== END | disposition home or self-care (01) ==
LOC: LAB HH 15:00
PROVIDERS: Family Medicine
DX: R89.9 Unspecified abnormal finding in specimens from other organs, systems and tissues (principal)
CPT/HCPCS: 80048

== ENCOUNTER → 2021-01-11 | Outpatient (CLI) | payer OTHER ==
[~2021-01-11] MED LIST changes: -CEFD300 PO; -ERTAPENEM1 G1 IM; -GABA300 PO; -PENVK500 PO; -POTA10T PO
== END | disposition home or self-care (01) ==
LOC: LAB SHORT 19:09
DX: L03.90 Cellulitis, unspecified (principal); E55.9 Vitamin D deficiency, unspecified
CPT/HCPCS: 82306

== ENCOUNTER → 2021-02-07 | Outpatient (CLI) | payer OTHER ==
[~2021-02-07] MED LIST changes: +CEFD300 PO; +ERTAPENEM1 G1 IM; +GABA300 PO; +PENVK500 PO; +POTA10T PO
[2021-02-08 09:10] LABS: Anion Gap 2 mmol/L (6-16); Blood Urea Nitrogen 17 mg/dL (8-24); Bun/Creatinine Ratio 17.7 (12.0-20.0); CO2, Blood 31 mmol/L (21-32); Calcium, Blood 8.8 mg/dL (8.5-10.1); Chloride, Blood 103 mmol/L (98-108); Creatinine, Blood 0.96 mg/dL (0.40-1.00); Glomerular Filtration Rate >60 (60-); Glucose, Blood 98 mg/dL (70-99); Potassium, Blood 4.3 mmol/L (3.5-5.5); Sodium, Blood 136 mmol/L (136-145)
== END | disposition home or self-care (01) ==
LOC: LAB HH 11:10
PROVIDERS: Family Medicine
DX: R94.4 Abnormal results of kidney function studies (principal)
CPT/HCPCS: 80048

== ENCOUNTER 2021-02-11 13:20 | Emergency (ER) | payer OTHER ==
[~2021-02-11] VITALS: Ht 162.6 cm; Wt 272.2 kg
[~2021-02-11 13:20] MED LIST changes: -CEFD300 PO; -ERTAPENEM1 G1 IM; -GABA300 PO; -PENVK500 PO; -POTA10T PO
[2021-02-11 14:30] LABS: BASOPHILS ABSOLUTE AUTO 0.03 K/mm3 (0.00-0.23); BASOPHILS PERCENT AUTO 1 % (0-2); EOSINOPHILS ABSOLUTE AUTO 0.23 K/mm3 (0.00-0.68); EOSINOPHILS PERCENT AUTO 4 % (0-6); Hemoglobin 10.1 g/dL (11.5-16.0); IMMATURE GRAN ABSOLUTE AUTO 0.02 K/mm3 (0.00-0.10); IMMATURE GRAN PERCENT AUTO 0 % (0-1); LYMPHOCYTES PERCENT AUTO 19 % (21-46); MONOCYTES ABSOLUTE AUTO 0.43 K/mm3 (0.16-1.47); MONOCYTES PERCENT AUTO 8 % (4-13); Mean Corpuscular HGB 30.9 pg (26.0-34.0); Mean Corpuscular HGB Conc 31.6 g/dL (31.5-36.5); Mean Corpuscular Volume 98 fL (80-100); NEUTROPHILS ABSOLUTE AUTO 3.96 K/mm3 (1.96-9.15); NEUTROPHILS PERCENT AUTO 69 % (41-73); Platelet Count 246 K/mm3 (150-400); RDW Standard Deviation 46.2 fL (35.1-46.3); Red Blood Cell Count 3.27 M/mm3 (3.80-5.20); White Blood Cell Count 5.77 K/mm3 (4.00-11.30)
[2021-02-11 14:46] LABS: Albumin, Blood 2.6 g/dL (3.4-5.0); Albumin/Globulin Ratio 0.6 (0.8-1.8); Bilirubin, Total 0.5 mg/dL (0.1-1.0); Calcium, Blood 8.3 mg/dL (8.5-10.1); Creatinine, Blood 1.07 mg/dL (0.40-1.00); Globulin, Blood 4.4 g/dL (2.2-4.0); Potassium, Blood 3.5 mmol/L (3.5-5.5)
[2021-02-11] MEDS ORDERED: GABA300 PO (15:20)
[2021-02-11] MEDS ORDERED: PENVK500 PO (15:21)
[2021-02-11] MEDS ORDERED: CYCL10 PO (15:22)
[2021-02-11] MEDS ORDERED: POTA10T PO (15:22)
[2021-02-11] MEDS ORDERED: ERTAPENEM1 G1 IM (15:24)
[2021-02-11 16:24] LABS: Source, Urine Catheter
[2021-02-11 16:29] LABS: Appearance, Urine Clear (Clear); Blood, Urine 3+ (Neg); Glucose Qualitative, Urine Neg (Neg); Ketones, Urine Neg (Neg); Leukocyte Esterase, Urine 1+ (Neg); Nitrite, Urine Pos (Neg); Protein, Urine 1+ (Neg); Urobilinogen, Urine 2+ (Normal)
[2021-02-11 16:36] LABS: Bilirubin, Urine 2+ (Neg); Color, Urine Orange (P-Yellow)
[2021-02-11 16:39] LABS: Bacteria Few /hpf; Granular Casts 0-2 /lpf (0); Mucus Light (0-Heavy); Squamous Epithelial Cells Rare /hpf (Few)
[2021-02-11] MEDS ORDERED: CEFD300 PO (18:00)
[2021-02-11 19:14] LABS: Source, Urine Catheter
[2021-02-11 19:18] LABS: Appearance, Urine Hazy (Clear); Blood, Urine 5+ (Neg); Glucose Qualitative, Urine Neg (Neg); Ketones, Urine Neg (Neg); Leukocyte Esterase, Urine 2+ (Neg); Nitrite, Urine Pos (Neg); Protein, Urine 2+ (Neg); Specific Gravity, Urine 1.025 (1.003-1.022); Urobilinogen, Urine 2+ (Normal)
[2021-02-11 19:23] LABS: Bilirubin, Urine 2+ (Neg)
[2021-02-11 19:24] LABS: Color, Urine Orange (P-Yellow)
[2021-02-11 19:25] LABS: Granular Casts Rare /lpf (0); Hyaline Casts 0-2 /lpf (0-2); WBC Cast Rare /lpf (0)
[2021-02-11 19:26] LABS: Bacteria Many /hpf; Red Blood Cells, Urine 50-100 /hpf (0-2); Squamous Epithelial Cells Mod /hpf (Few); White Blood Cells, Urine 25-50 /hpf (0-5)
== END 2021-02-11 19:52 | disposition home or self-care (01) ==
LOC: ER 13:20
PROVIDERS: Emergency Medicine; Physician Assistant
DX: N39.0 Urinary tract infection, site not specified (principal); I10 Essential (primary) hypertension; Z79.899 Other long term (current) drug therapy; Z88.5 Allergy status to narcotic agent; Z87.891 Personal history of nicotine dependence
CPT/HCPCS: 36415; 51702; 51703; 80053; 81001; 83605; 83690; 85025; 87040; 87077; 87086; 87186; 96374-59; 96375-59; 99284-25; J0696; J3010; J7030

== ENCOUNTER → 2021-03-07 | Outpatient (CLI) | payer OTHER ==
[~2021-03-07] MED LIST changes: +CEFD300 PO; +ERTAPENEM1 G1 IM; +GABA300 PO; +PENVK500 PO; +POTA10T PO
[2021-03-07 14:44] LABS: BASOPHILS ABSOLUTE AUTO 0.04 K/mm3 (0.00-0.23); BASOPHILS PERCENT AUTO 1 % (0-2); EOSINOPHILS ABSOLUTE AUTO 0.07 K/mm3 (0.00-0.68); EOSINOPHILS PERCENT AUTO 2 % (0-6); Hemoglobin 11.9 g/dL (11.5-16.0); IMMATURE GRAN ABSOLUTE AUTO 0.01 K/mm3 (0.00-0.10); IMMATURE GRAN PERCENT AUTO 0 % (0-1); LYMPHOCYTES ABSOLUTE AUTO 1.18 K/mm3 (0.84-5.20); LYMPHOCYTES PERCENT AUTO 25 % (21-46); MONOCYTES ABSOLUTE AUTO 0.35 K/mm3 (0.16-1.47); MONOCYTES PERCENT AUTO 7 % (4-13); Mean Corpuscular HGB 31.2 pg (26.0-34.0); Mean Corpuscular HGB Conc 32.2 g/dL (31.5-36.5); Mean Corpuscular Volume 97 fL (80-100); Mean Platelet Volume 9.6 fL (9.1-12.4); NEUTROPHILS ABSOLUTE AUTO 3.11 K/mm3 (1.96-9.15); NEUTROPHILS PERCENT AUTO 65 % (41-73); Platelet Count 318 K/mm3 (150-400); RDW Coefficient Variation 13.5 % (11.7-14.2); RDW Standard Deviation 48.1 fL (35.1-46.3); Red Blood Cell Count 3.81 M/mm3 (3.80-5.20); White Blood Cell Count 4.76 K/mm3 (4.00-11.30)
[2021-03-07 14:54] LABS: Anion Gap 5 mmol/L (6-16); Blood Urea Nitrogen 17 mg/dL (8-24); Bun/Creatinine Ratio 17.6 (12.0-20.0); CO2, Blood 33 mmol/L (21-32); Calcium, Blood 9.6 mg/dL (8.5-10.1); Chloride, Blood 97 mmol/L (98-108); Creatinine, Blood 0.96 mg/dL (0.40-1.00); Glomerular Filtration Rate >60 (60-); Glucose, Blood 125 mg/dL (70-99); Potassium, Blood 3.5 mmol/L (3.5-5.5); Sodium, Blood 135 mmol/L (136-145)
== END | disposition home or self-care (01) ==
LOC: LAB 14:09 → LAB SHORT 14:09
PROVIDERS: Family Medicine
DX: E87.6 Hypokalemia (principal)
CPT/HCPCS: 80048; 85025

== ENCOUNTER → 2021-03-09 | Outpatient (CLI) | payer OTHER ==
[2021-03-09 11:46] LABS: Source, Urine Catheter
[2021-03-09 11:59] LABS: BASOPHILS ABSOLUTE AUTO 0.02 K/mm3 (0.00-0.23); BASOPHILS PERCENT AUTO 0 % (0-2); EOSINOPHILS ABSOLUTE AUTO 0.14 K/mm3 (0.00-0.68); EOSINOPHILS PERCENT AUTO 3 % (0-6); Hematocrit 37.8 % (33.0-51.0); IMMATURE GRAN ABSOLUTE AUTO 0.01 K/mm3 (0.00-0.10); IMMATURE GRAN PERCENT AUTO 0 % (0-1); LYMPHOCYTES ABSOLUTE AUTO 1.58 K/mm3 (0.84-5.20); LYMPHOCYTES PERCENT AUTO 32 % (21-46); MONOCYTES ABSOLUTE AUTO 0.51 K/mm3 (0.16-1.47); MONOCYTES PERCENT AUTO 10 % (4-13); Mean Corpuscular HGB 30.9 pg (26.0-34.0); Mean Corpuscular HGB Conc 31.7 g/dL (31.5-36.5); Mean Corpuscular Volume 97 fL (80-100); Mean Platelet Volume 9.8 fL (9.1-12.4); NEUTROPHILS ABSOLUTE AUTO 2.66 K/mm3 (1.96-9.15); NEUTROPHILS PERCENT AUTO 54 % (41-73); Platelet Count 308 K/mm3 (150-400); RDW Coefficient Variation 13.3 % (11.7-14.2); RDW Standard Deviation 47.6 fL (35.1-46.3); Red Blood Cell Count 3.88 M/mm3 (3.80-5.20); White Blood Cell Count 4.92 K/mm3 (4.00-11.30)
[2021-03-09 12:19] LABS: Anion Gap 6 mmol/L (6-16); Blood Urea Nitrogen 20 mg/dL (8-24); Bun/Creatinine Ratio 19.8 (12.0-20.0); CO2, Blood 33 mmol/L (21-32); Calcium, Blood 9.5 mg/dL (8.5-10.1); Chloride, Blood 96 mmol/L (98-108); Creatinine, Blood 1.01 mg/dL (0.40-1.00); Glomerular Filtration Rate >60 (60-); Glucose, Blood 109 mg/dL (70-99); Potassium, Blood 3.7 mmol/L (3.5-5.5); Sodium, Blood 135 mmol/L (136-145)
[2021-03-09 13:11] LABS: C DIFFICILE DNA NEGATIVE (Negative)
[2021-03-09 14:39] LABS: Bilirubin, Urine Neg (Neg); Blood, Urine 5+ (Neg); Glucose Qualitative, Urine Neg (Neg); Ketones, Urine Neg (Neg); Leukocyte Esterase, Urine 3+ (Neg); Nitrite, Urine Neg (Neg); Protein, Urine 2+ (Neg); Urobilinogen, Urine NORM (Normal)
[2021-03-09 15:02] LABS: Appearance, Urine Cloudy (Clear); Color, Urine Yellow (P-Yellow)
[2021-03-09 15:11] LABS: Red Blood Cells, Urine TNTC /hpf (0-2); White Blood Cells, Urine TNTC /hpf (0-5)
[2021-03-09 15:12] LABS: Bacteria Many /hpf; Squamous Epithelial Cells Few /hpf (Few)
[2021-03-10 10:47] LABS: Campylobacter Sp Not Detected (NOT DETECT); Plesiomonas Shigelloides Not Detected (NOT DETECT); Salmonella Sp Not Detected (NOT DETECT); Vibrio Sp Not Detected (NOT DETECT); Yersinia Enterocolitica Not Detected (NOT DETECT)
[2021-03-10 10:48] LABS: Adenovirus F 40/41 Not Detected (NOT DETECT); Astrovirus Not Detected (NOT DETECT); Cryptosporidium Not Detected (NOT DETECT); Cyclospora Cayetanensis Not Detected (NOT DETECT); E. Coli O157 Not Detected (NOT DETECT); Entamoeba Histolytica Not Detected (NOT DETECT); Enteroaggregative E. coli-EAEC Not Detected (NOT DETECT); Enteropathogenic E. coli-EPEC Not Detected (NOT DETECT); Enterotoxigenic E. coli-ETEC Not Detected (NOT DETECT); Giardia Lamblia Not Detected (NOT DETECT); Norovirus GI/GII Not Detected (NOT DETECT); Rotavirus A Not Detected (NOT DETECT); Sapovirus Not Detected (NOT DETECT); Shiga Toxin-prod E. coli-STEC Not Detected (NOT DETECT); Shigella/Enteroin E. coli-EIEC Not Detected (NOT DETECT); Vibrio Cholerae Not Detected (NOT DETECT)
== END | disposition home or self-care (01) ==
LOC: LAB SHORT 10:00 → LAB 10:00
PROVIDERS: Family Medicine
DX: I89.0 Lymphedema, not elsewhere classified (principal); R19.7 Diarrhea, unspecified
CPT/HCPCS: 0097U; 80048; 81001; 85025; 87015; 87045; 87046; 87077; 87086; 87186; 87205; 87493; 87899

== ENCOUNTER → 2021-03-30 | Outpatient (CLI) | payer OTHER ==
[2021-03-30 12:33] LABS: Source, Urine Catheter
[2021-03-30 15:14] LABS: Appearance, Urine Turbid (Clear); Bilirubin, Urine Neg (Neg); Blood, Urine 5+ (Neg); Color, Urine Yellow (P-Yellow); Glucose Qualitative, Urine Neg (Neg); Ketones, Urine Neg (Neg); Leukocyte Esterase, Urine 3+ (Neg); Nitrite, Urine Pos (Neg); Protein, Urine 1+ (Neg); Specific Gravity, Urine 1.015 (1.003-1.022); Urobilinogen, Urine NORM (Normal)
[2021-03-30 15:31] LABS: Bacteria Many /hpf; Squamous Epithelial Cells Few /hpf (Few); White Blood Cells, Urine 50-100 /hpf (0-5)
[2021-03-30 16:05] LABS: Anion Gap 6 mmol/L (6-16); Blood Urea Nitrogen 18 mg/dL (8-24); Bun/Creatinine Ratio 23.7 (12.0-20.0); CO2, Blood 33 mmol/L (21-32); Calcium, Blood 9.4 mg/dL (8.5-10.1); Chloride, Blood 95 mmol/L (98-108); Creatinine, Blood 0.76 mg/dL (0.40-1.00); Glomerular Filtration Rate >60 (60-); Glucose, Blood 137 mg/dL (70-99); Potassium, Blood 3.1 mmol/L (3.5-5.5); Sodium, Blood 134 mmol/L (136-145)
== END | disposition home or self-care (01) ==
LOC: LAB SHORT 09:49 → LAB 09:49
PROVIDERS: Family Medicine
DX: I89.0 Lymphedema, not elsewhere classified (principal); R30.9 Painful micturition, unspecified
CPT/HCPCS: 80048; 81001; 87077; 87086; 87186

== ENCOUNTER → 2021-04-07 | Outpatient (CLI) | payer OTHER | END | disposition home or self-care (01) | LOC: LAB 07:55 | DX: I89.0 Lymphedema, not elsewhere classified (principal) ==

== ENCOUNTER → 2021-04-15 | Outpatient (CLI) | payer OTHER ==
[2021-04-15 09:56] LABS: Anion Gap 3 mmol/L (6-16); Blood Urea Nitrogen 12 mg/dL (8-24); Bun/Creatinine Ratio 12.4 (12.0-20.0); CO2, Blood 35 mmol/L (21-32); Calcium, Blood 8.9 mg/dL (8.5-10.1); Chloride, Blood 99 mmol/L (98-108); Creatinine, Blood 0.96 mg/dL (0.40-1.00); Glomerular Filtration Rate >60 (60-); Glucose, Blood 115 mg/dL (70-99); Potassium, Blood 3.4 mmol/L (3.5-5.5); Sodium, Blood 137 mmol/L (136-145)
== END ==
LOC: LAB 08:13 → LAB SHORT 08:13 → LAB UCHC 08:13
PROVIDERS: Family Medicine
DX: I89.0 Lymphedema, not elsewhere classified (principal); Z88.5 Allergy status to narcotic agent; Z91.018 Allergy to other foods
CPT/HCPCS: 80048; 83735

== ENCOUNTER 2021-04-18 09:35 | Inpatient (IN) | payer OTHER ==
[~2021-04-18] VITALS: Ht 162.6 cm; Wt 234.6 kg
[2021-04-18 09:45] LABS: Calcium, Ionized (POC) 1.13 mmol/L (1.10-1.46); Chloride (POC) 93 mmol/L (98-108); Creatinine (POC) 1.4 mg/dL (0.6-1.0); Glucose (ISTAT POC) 251 mg/dL (70-99); Hemoglobin (POC) 14.3 g/dL (12.0-16.0); Potassium (POC) 4.2 mmol/L (3.5-5.5); Sodium (POC) 132 mmol/L (135-148); Total CO2 (POC) 27 mmol/L (21-32)
[2021-04-18 09:46] LABS: Base Excess Venous 0.9 mmol/L; Bicarbonate Venous 24.6 mmol/L (24.0-30.0); PO2 Venous 78.3 mmHg (38-42); pH Blood Venous 7.37 (7.34-7.37)
[2021-04-18 10:01] LABS: BASOPHILS ABSOLUTE AUTO 0.05 K/mm3 (0.00-0.23); BASOPHILS PERCENT AUTO 0 % (0-2); EOSINOPHILS ABSOLUTE AUTO 0.26 K/mm3 (0.00-0.68); EOSINOPHILS PERCENT AUTO 2 % (0-6); Hematocrit 40.6 % (33.0-51.0); Hemoglobin 13.5 g/dL (11.5-16.0); IMMATURE GRAN ABSOLUTE AUTO 0.04 K/mm3 (0.00-0.10); IMMATURE GRAN PERCENT AUTO 0 % (0-1); LYMPHOCYTES ABSOLUTE AUTO 4.38 K/mm3 (0.84-5.20); LYMPHOCYTES PERCENT AUTO 35 % (21-46); MONOCYTES ABSOLUTE AUTO 0.91 K/mm3 (0.16-1.47); MONOCYTES PERCENT AUTO 7 % (4-13); Mean Corpuscular HGB 31.7 pg (26.0-34.0); Mean Corpuscular HGB Conc 33.3 g/dL (31.5-36.5); Mean Corpuscular Volume 95 fL (80-100); Mean Platelet Volume 9.8 fL (9.1-12.4); NEUTROPHILS ABSOLUTE AUTO 6.72 K/mm3 (1.96-9.15); NEUTROPHILS PERCENT AUTO 54 % (41-73); Platelet Count 263 K/mm3 (150-400); RDW Coefficient Variation 12.8 % (11.7-14.2); RDW Standard Deviation 43.8 fL (35.1-46.3); Red Blood Cell Count 4.26 M/mm3 (3.80-5.20); White Blood Cell Count 12.36 K/mm3 (4.00-11.30)
[2021-04-18 10:30] LABS: Albumin, Blood 3.1 g/dL (3.4-5.0); Albumin/Globulin Ratio 0.6 (0.8-1.8); Bilirubin, Total 0.6 mg/dL (0.1-1.0); Bun/Creatinine Ratio 13.4 (12.0-20.0); Creatinine, Blood 1.27 mg/dL (0.40-1.00); Globulin, Blood 5.2 g/dL (2.2-4.0); Potassium, Blood 3.4 mmol/L (3.5-5.5); Total Protein, Blood 8.3 g/dL (6.4-8.2); Troponin I 0.025 ng/mL (0.000-0.040)
[2021-04-18 10:59] LABS: PO2 Arterial 67.2 mmHg (80-100); pH Blood Arterial 7.45 (7.35-7.45)
[2021-04-18 11:21] LABS: SARS-Cov-2 (COVID-19) PCR, MMC POSITIVE (NEGATIVE)
[2021-04-18 14:59] LABS: International Normalized Ratio 1.12
--- NOTE | 2021-04-18 19:13 | NUR ---
ICU ADMISSION / SHIFT SUMMARY: PT ARRIVED TO ICU-10 AT APPROX 1620. ON ARRIVAL, SHE IS ALERT & ORIENTED TO ALL, DENIES PAIN CURRENTLY. LS ARE DIM IN BASES, PT ON 3L NC W/ O2 SATS > 92%. MONITOR SHOWS ST W/ HR 130-140s. MONITOR UNABLE TO OBTAIN PT's BP. THIS RN & ELVIN Koroma RN, UNABLE TO OBTAIN BP VIA MANUAL CHECK. BP CHECKED VIA DOPPLER ON LEFT WRIST & READS 76/DOPPLER. PROVIDER DR NETTLES HAS BEEN MADE AWARE & HAS PLACED AN ARTERIAL LINE TO RIGHT RADIAL. LINE HAS BEEN SUTURED IN PLACE & ARM BOARD PLACED TO MAINTAIN SITE INTEGRITY. WAVEFORM IS DAMPENED AT TIMES & HAS BEEN ZEROED NUMEROUS TIMES W/ NO IMPROVEMENT NOTED. THE PROVIDER IS OKAY W/ THE BP READINGS THAT ARE BEING OBTAINED. MARY BHARDWAJ RN, HAS USED US TO DETERMINE IF A PICC LINE WOULD BE A SUITABLE OPTION FOR VASCULAR ACCESS ON THIS PT. IT IS DETERMINED THAT A CENTRAL LINE WOULD BE THE BEST OPTION & DR NETTLES HAS PLACED THE LINE TO THE PT's LEFT IJ. THE PT HAS NO GI COMPLAINTS OTHER THAN HUNGER. CHRONIC NOBLE IN PLACE ON ADMISSION IS A 22FR. THIS RN ABLE TO GET A 20FR COUDE BUT HAS BEEN UNABLE TO CHANGE NOBLE OR SEND UA R/T ISSUES NOTED ABOVE. SKIN CONDITION OVERALL FRAGILE, DISCOLORATION NOTED TO RIGHT LEG. REPORT GIVEN TO JOLANTA Valdivia RN TO ASSUME CARE OF THIS PT.
--- NOTE | 2021-04-18 20:00 | NUR ---
ASSUMED CARE AT 1900 PT LAYING IN BED AND IS ALERT/ORIENTED X4 AND ABLE TO MAKE HER NEEDS KNOWN. SPO2 >94% ON 3L NC; TACHYPNEA NOTED WITH RR IN HIGH 20'S TO LOW 30'S; OCCATIONAL PRODUCTIVE COUGH WITH SMALL AMOUNT OF THICK WHITE SECREATIONS. ART LINE IN PLACE TO RT RADIAL; SBP 90-100; MAP >65; PULSES FAINTLY FELT IN ALL EXTREMITIES. HOME CATH STILL IN PLACE; PLAN TO REPLACE CATH AND SEND UA AFTERWARDS. PT COOL TO TOUCH. RLE SHOWS BLUE DISCOLORATION. LT IJ CENTRAL LINE DRESSING SATURATED, PLAN TO CHANGE DRESSING. SEE SHIFT ASSESSMENT FOR FULL ASSESSMENT.
--- NOTE | 2021-04-18 22:20 | NUR ---
INTUBATION OXYGEN SATURATIONS NOTED TO BE 81%. PT GASPING FOR AIR. STILL ALERT AND ABLE TO SPEAK ONE TO WORD SENTENCES. INITIATED BAGGING VIA BMV WITH 15L OF OXYGEN. RT CALLED TO BEDSIDE AT THIS TIME TO TAKE OVER BAGGING PT. HYPOTENSIVE WITH SBP 70'S. LEVOPHED INCREASED TO MAX 30MCG/MIN. DR. NETTLES CALLED FROM INSIDE PT'S ROOM TO BE GIVEN AN UPDATE. NEW ORDERS FOR VASOPRESSIN. VAP BUNDLE ORDERS ENTERED. ED DOC TO BEDSIDE AT 2226 20MG OF ETOMIDATE 2234 100MG OF ROCORONIUM 2233 ETT 8.0 23CM AT TEETH AT 2235 GOOD COLOR CHANGE AND EQUAL BILATERAL BREATH SOUNDS
--- NOTE | 2021-04-18 22:35 | NUR ---
UPDATE DR WATSON CALLED AT 2114 REGARDING PT INCREASE IN ANXIETY. PT STATES THAT SHE IS MORE ANXIOUS AND HAVING TROUBLE CATCHING BREATH; SPO2 >94% ON 3L NC; RR HIGH 30'S; HR 100-120. LEVOPHED STARTED AT 2100 FOR SBP 70-80'S AND MAP 60-65. NEW ORDERS PROVIDED FOR 1MG IV ATIVAN TO BE GIVEN ONCE; GIVEN AND HELPFUL FOR 10MIN THAN RETURNED TO ANXIOUS STATE. ALSO PLACED PT ON CPAP FOR COMFORT INSTRUCTED BY PT AND SHE DID NOT TOLERATE PRESSURE. DR NETTLES NOTIFIED AND PROVIDED ORDER FOR PRECEDEX IF NEEDED FOR CPAP COMPLIENCE BUT CPAP NOT REQUIRED AT THIS TIME. PT LABILE FEELING COLD ONE MOMENT AND HOT THE NEXT; BLE SHOW INCREASE MOTTLING. BEFORE INTUBATION AT 2214 PT BEGAN TO "GUPPY BREATH" USING ACCESSORY MUSCLES AND RR INCREASED TO 40'S; OXYGEN REQUIREMENTS INCREASED AND O2 INCREASED FROM 3L TO 8L. BAGGING BEGAN SHORTLY BEFORE INTUBATION. SEE NEXT NOTE REGARDING INTUBATION.
--- NOTE | 2021-04-18 23:00 | NUR ---
POST INTUBATION PTT LAB RESULTS >139; PHARMACY STATED TO HAVE HEPARIN PLACED ON SB UNTIL 0000. ABG COLLECTED AFTER INTUBATION WITH CRITICAL LOW pH 6.95. DR NETTLES ON SITE AND PROVIDED NEW ORDERS FOR 3 AMPS OF BICARB FOLLOWED BY BICARB GTT AND AN EPI GTT. THESE ORDERS DID NOT GET ENTERED DUE TO PT CODING AFTERWARDS. SEE NEXT NOTE REGARDING CODE BLUE.
[2021-04-18 23:09] LABS: PCO2 Arterial 52.7 mmHg (35-45); PO2 Arterial 433 mmHg (80-100); pH Blood Arterial 6.95 (7.35-7.45)
--- NOTE | 2021-04-19 01:30 | NUR ---
CODE BLUE #2 PT HR BRADYED DOWN AGAIN INTO THE 40'S. CODE VIRGIL CALLED, COMPRESSIONS STARTED, SEE CODE BLUE SHEET FOR DETAILS. FAMILY AT BED SIDE/ DISTRAOUGHT AND SON PROVIDED VERBAL NOTIFICATION TO DR NETTLES TO CHANGE CODE STATUS TO DNR ONCE ROSC OCCURED AGAIN. LEVOHPED AT 30, VASOPRESSON AT 0.04, EPI AT 20.
--- NOTE | 2021-04-19 06:15 | NUR ---
CODE BLUE PT HR DROPED FROM 130'S TO 40 AND LOWER FOLLOWED BY PULSLESSNESS. CODE VIRGIL CALLED AT 2320. SEE CODE BLUE SHEET FOR DETAILS. GTTS INFUSING AFTER CODE LEVOPHED INFUSING AT 30MCG/MIN VASOPRESSIN INFUSING SODIUM BICARB INFUSING TPA INFUSING EPI INFUSING PTT DRAWN AT 0000 WITH LAB 100.8; HEPARIN TO BE STARTED 2 HRS AFTER TPA IS DONE INFUSING. FAMILY ARRIVED INCLUDING , DAUGHTER, SON, AND [id number]. DR VALLE AT BEDSIDE DISCUSSING SITUATION WITH FAMILY.
--- NOTE | 2021-04-19 06:31 | NUR ---
UPDATE AT 0030 TPA FINISHED INFUSING; PLAN TO START HEPARIN AGAIN AT 0230. DR NETTLES APPROVED TITRATING EPI UP TO 20 AND PROVIDED ORDER FOR 1L BOLUS FOR PRESSURES. PT FAMILY DISTRAUGHT AT BEDSIDE, UNABLE TO WALK WITHOUT HELP. FAMILY DENIED WANTING A SUSAN.
--- NOTE | 2021-04-19 06:40 | NUR ---
TOD AT 0210 0208 PT HR DECREASED AND BRADYED DOWN INTO THE 40'S FOLLOWED BY PEA. CONFIRMATION VIA AUSCULTATION AT 0210. FAMILY DISTRAUGHT. CLINICAL INFORMATICS SPEC DISCUSSED HOME WITH FAMILY. FAMILY LEFT BEDSIDE AT 0230.
--- NOTE | 2021-04-25 15:21 | NUR ---
LATE ENTRY JOLANTA GRANGER RN CARED FOR PATIENT ON THE EVENING OF 04/18. BILATERAL WRIST RESTRAINTS WERE REMOVED WHEN THERE WAS A CODE BLUE AT 0130 04/19. UNABLE TO EDIT RESTRAINT MONITORING DOCUMENTATION AT THIS TIME.
== END 2021-04-19 02:10 | DRG 871 ==
LOC: ER 09:35 → ICUW 13:49
PROVIDERS: Emergency Medicine; ADMIT Internal Medicine
PROC: 5A1935Z Respiratory Ventilation, Less than 24 Consecutive Hours (ICD-10-PCS; principal; 2021-04-18)
PROC: 8E0ZXY6 Isolation (ICD-10-PCS; 2021-04-18)
PROC: 5A12012 Performance of Cardiac Output, Single, Manual (ICD-10-PCS; 2021-04-18)
PROC: 3E03317 Introduction of Other Thrombolytic into Peripheral Vein, Percutaneous Approach (ICD-10-PCS; 2021-04-18)
PROC: 0BH18EZ Insertion of Endotracheal Airway into Trachea, Via Natural or Artificial Opening Endoscopic (ICD-10-PCS; 2021-04-18)
PROC: 05HN33Z Insertion of Infusion Device into Left Internal Jugular Vein, Percutaneous Approach (ICD-10-PCS; 2021-04-18)
PROC: B544ZZA Ultrasonography of Left Jugular Veins, Guidance (ICD-10-PCS; 2021-04-18)
PROC: 03HY32Z Insertion of Monitoring Device into Upper Artery, Percutaneous Approach (ICD-10-PCS; 2021-04-18)
PROC: 4A133B1 Monitoring of Arterial Pressure, Peripheral, Percutaneous Approach (ICD-10-PCS; 2021-04-18)
PROC: 4A133J1 Monitoring of Arterial Pulse, Peripheral, Percutaneous Approach (ICD-10-PCS; 2021-04-18)
PROC: XW033E5 Introduction of Remdesivir Anti-infective into Peripheral Vein, Percutaneous Approach, New Technology Group 5 (ICD-10-PCS; 2021-04-18)
PROC: 3E0333Z Introduction of Anti-inflammatory into Peripheral Vein, Percutaneous Approach (ICD-10-PCS; 2021-04-18)
PROC: 3E033XZ Introduction of Vasopressor into Peripheral Vein, Percutaneous Approach (ICD-10-PCS; 2021-04-18)
DX: A41.89 Other specified sepsis (principal); U07.1 COVID-19; I26.99 Other pulmonary embolism without acute cor pulmonale; J96.01 Acute respiratory failure with hypoxia; N17.9 Acute kidney failure, unspecified; I82.411 Acute embolism and thrombosis of right femoral vein; I82.431 Acute embolism and thrombosis of right popliteal vein; T82.838A Hemorrhage due to vascular prosthetic devices, implants and grafts, initial encounter; E87.2 Acidosis; Z68.45 Body mass index [BMI] 70 or greater, adult; R65.11 Systemic inflammatory response syndrome (SIRS) of non-infectious origin with acute organ dysfunction; Z51.5 Encounter for palliative care; Z66 Do not resuscitate; G47.33 Obstructive sleep apnea (adult) (pediatric); E66.01 Morbid (severe) obesity due to excess calories; G43.909 Migraine, unspecified, not intractable, without status migrainosus; I46.8 Cardiac arrest due to other underlying condition; R57.0 Cardiogenic shock; E87.6 Hypokalemia; Z90.710 Acquired absence of both cervix and uterus; Z98.890 Other specified postprocedural states; Z88.5 Allergy status to narcotic agent; Z88.8 Allergy status to other drugs, medicaments and biological substances; Z79.899 Other long term (current) drug therapy; I82.461 Acute embolism and thrombosis of right calf muscular vein; I89.0 Lymphedema, not elsewhere classified; R65.20 Severe sepsis without septic shock; Z78.1 Physical restraint status
CPT/HCPCS: 31500; 36415; 36556; 36600; 36620; 51703; 71045; 76775; 80047; 80048; 80053; 82728; 82803; 83605; 83735; 83880; 84484; 85014; 85025; 85379; 85610; 85730; 86140; 87040; 87070; 87205; 92950; 93306; 93970; 94002; 96365; 96375; 99285-25; A9270; C1751; J0171; J1100; J1644; J2060; J2250; J2704; J2997; J3010; J7030; J7040; J7060; J7070; U0004